=== PATIENT | male | born 1960 | race African-American/Black ===

== ENCOUNTER 2016-09-30 10:40 | Inpatient (IN) | payer OTHER ==
[2016-09-30 11:11] VITALS: BMI 29.5
--- NOTE | 2016-09-30 13:04 | HP ---
CIWA Score - CIWA Score Nausea/Vomitin Muscle Tremors: 3 Anxiety: 2 Agitation: 1-Slight > Activity Paroxysmal Sweats: 3 Orientation: 0-Oriented Tacttile Disturbances: 3-Moderate Itch/Numb/Burn Auditory Disturbances: 0-None Visual Disturbances: 0-None Headache: 3-Moderate CIWA-Ar Total Score: 17 Admission ROS BHS - HPI Chief Complaint: "I need help[.' Pt. is here to Detox from Alcohol. Allergies/Adverse Reactions: Allergies Allergy/AdvReac Type Severity Reaction Status Date / Time trimethoprim Allergy Severe Hives Verified 09/30/16 11:56 [From Bactrim DS] sulfamethoxazole Allergy Mild Hives Verified 09/30/16 11:56 [From Bactrim DS] History of Present Illness: Pt. is a 56 YO male here to Detox from Alcohol. Pt. has had several Detox and Rehab admissions at [facility] in the past. Pt. also uses Cocaine on an intermittent basis. Exam Limitations: No Limitations - Ebola screening Have you traveled outside of the country in the last 21 days: No Have you had contact with anyone from an Ebola affected area: No Have you been sick,other than usual withdrawal symptoms: No Do you have a fever: No - Review of Systems Constitutional: Diaphoresis, Loss of Appetite, Malaise, Night Sweats, Changes in sleep, Unexplained wgt Loss (Lost Approx. 20 lbs. over last 2 months.) EENT: reports: Blurred Vision, Nose Congestion, Sinus Pressure Respiratory: reports: SOB with Exertion, Productive cough (Occasional.) Cardiac: reports: Palpitations GI: reports: Diarrhea, Nausea, Poor Appetite : reports: No Symptoms Reported Musculoskeletal: reports: Back Pain Integumentary: reports: Dryness Neuro: reports: Headache, Tremors Endocrine: reports: No Symptoms Reported Hematology: reports: No Symptoms Reported Psychiatric: reports: Judgement Intact, Mood/Affect Appropiate, Orientated x3, Anxious Other Systems: Reviewed and Negative Patient History - Patient Medical History Hx Anemia: No Hx Asthma: Yes (On meds.) Hx Chronic Obstructive Pulmonary Disease (COPD): Yes Hx Cancer: No (On meds.) Hx Cardiac Disorders: Yes (CHF) Hx Congestive Heart Failure: Yes Hx Hypertension: No Hx Hypercholesterolemia: Yes (ON MED) Hx Pacemaker: No HX Cerebrovascular Accident: No Hx Seizures: No Hx Dementia: No Hx Diabetes: No Hx Gastrointestinal Disorders: No Hx Liver Disease: Yes (Hep C, Treated @ 1999.) Hx Genitourinary Disorders: No Hx Sexually Transmitted Disorders: Yes (Gonorrhea, treated, at approx. age 22.) Hx Renal Disease (ESRD): Yes (Possible, uncertain at this time; has appt. 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 Worker.) Hx Thyroid Disease: No Hx Human Immunodeficiency Virus (HIV): Yes (since 1992; ON MEDS) Hx Hepatitis C: Yes (diagnosed 1992; Treated @ 1999.) Hx Depression: No Hx Suicide Attempt: No (PATIENT DENIES CURRENT SI / HI.) Hx Bipolar Disorder: No Hx Schizophrenia: No - Patient Surgical History Past Surgical History: Yes Hx Neurologic Surgery: No Hx Cataract Extraction: No Hx Cardiac Surgery: No Hx Lung Surgery: No Hx Breast Surgery: No Hx Breast Biopsy: No Hx Abdominal Surgery: No Hx Appendectomy: No Hx Cholecystectomy: Yes (2000 AT [facility]) Hx Genitourinary Surgery: No Hx Section: No Hx Orthopedic Surgery: Yes (Repair of fracted Left Leg, age 11.) Anesthesia Reaction: No (DENIES) - PPD History Previous Implant?: Yes Documented Results: Negative w/proof Implanted On Prior [facility] Admission?: Yes Date: 01/22/16 Results: 0MM PPD to be Administered?: No - Reproductive History Patient is a Female of Child Bearing Age (11 -55 yrs old): No (PATIENT IS MALE.) - Smoking Cessation Smoking history: Current every day smoker Have you smoked in the past 12 months: Yes Aproximately how many cigarettes per day: 3 Cigars Per Day: 0 Hx Chewing Tobacco Use: No Initiated information on smoking cessation: Yes 'Breaking Loose' booklet given: 09/30/16 (GIVEN ON UNIT.) - Substance & Tx. History Hx Alcohol Use: Yes Hx Substance Use: Yes Substance Use Type: Alcohol, Cocaine Hx Substance Use Treatment: Yes (Previous Detox and Rehab admissions at [facility].) - Substances Abused Alcohol Route: Oral Frequency: Daily Amount used: beer 1 of 6 pack, vodka 1 pint Age of first use: 20 Date of Last Use: 09/30/16 Crack Route: Smoking Frequency: 3-6 times per week Amount used: 10 bags Age of first use: 20 Date of Last Use: 09/29/16 Family Disease History - Family Disease History Family Disease History: Heart Disease: Father (alive), Mother (HTN/ alive), Other: Mother Admission Physical Exam [facility] - Vital Signs Vital Signs: Vital Signs - 24 hr 09/30/16 11:09 Temperature 96.7 F L Pulse Rate 91 H Respiratory 18 Rate Blood Pressure 113/83 - Physical General Appearance: Yes: No Apparent Distress, Nourished, Appropriately Dressed , Tremorous HEENTM: Yes: Hearing grossly Normal, Normocephalic, Normal Voice, NHUNG, Pharynx Normal Respiratory: Yes: Chest Non-Tender, Lungs Clear, No Respiratory Distress Neck: Yes: No masses,lesions,Nodules, Supple, Trachea in good position Breast: Yes: Breast Exam Deferred Cardiology: Yes: Regular Rate, S1, S2 Abdominal: Yes: Normal Bowel Sounds, Non Tender, Soft, Protuberent, Surgical Scar (Right Upper Quadrant.) Genitourinary: Yes: Within Normal Limits Back: Yes: Decreased Range of Motion Musculoskeletal: Yes: Gait Steady, Joint Stiffness Extremities: Yes: Tremors Neurological: Yes: Fully Oriented, Alert, Normal Mood/Affect, Normal Response Integumentary: Yes: Normal Color, Dry, Warm Lymphatic: Yes: Within Normal Limits - Diagnostic (1) Alcohol dependence with uncomplicated withdrawal Current Visit: Yes Status: Acute (2) Asthma Current Visit: Yes Status: Chronic (3) CHF Congestive heart failure Current Visit: Yes Status: Chronic (4) HIV (human immunodeficiency virus infection) Current Visit: Yes Status: Chronic Comment: took his antiviril medication today. Unsure of last CD4 count (5) Hepatitis C carrier Current Visit: Yes Status: Chronic (6) Nicotine dependence Current Visit: Yes Status: Chronic Qualifiers: Nicotine product type: cigarettes Substance use status: uncomplicated Qualified Code(s): F17.210 - Nicotine dependence, cigarettes, uncomplicated (7) COPD (chronic obstructive pulmonary disease) Current Visit: Yes Status: Chronic Qualifiers: Chronic bronchitis type: unspecified Qualified Code(s): - (8) Cocaine dependence, uncomplicated Current Visit: Yes Status: Acute Cleared for Admission [facility] - Detox or Rehab [facility] Level of Care: Medically Managed (ADVISED PATIENT TO FOLLOW-UP WITH BUSINESS MACHINE MECHANIC / REHAB MEDICAL PROVIDER AFTER DISCHARGE FROM DETOX FOR GENERAL MEDICAL ASSESSMENT.) Detox Regimen/Protocol: Librium [facility] Breath Alcohol Content Breath Alcohol Content: 0 Urine Drug Screen - Results Drug Screen Negative: No Urine Drug Screen Results: KAMLESH-Cocaine
[2016-09-30] MEDS ORDERED: chlordiazePOXIDE HCL 25 MG CAPSULE PO ONE (13:22)
[2016-09-30] MEDS ORDERED: NICOTINE POLACRILEX 2 MG GUM BC PRN (13:22)
[2016-09-30] MEDS ORDERED: P-EPHED 60MG/TRIPROLIDI 2.5MG TABLET PO PRN (13:22)
[2016-09-30] MEDS ORDERED: MENTHOL/PHENOL 1 EACH UD MM PRN (13:22)
[2016-09-30] MEDS ORDERED: hydrOXYzine PAMOATE 50 MG CAPSULE (FP) PO PRN (13:22)
[2016-09-30] MEDS ORDERED: LOPERAMIDE HCL 2 MG CAPSULE PO PRN (13:22)
[2016-09-30] MEDS ORDERED: guaiFENesin/D-METHORPHAN HB 10 ML UNIT-DOSE CUPS PO PRN (13:22)
[2016-09-30] MEDS ORDERED: chlordiazePOXIDE HCL 25 MG CAPSULE PO PRN (13:22)
[2016-09-30] MEDS ORDERED: IBUPROFEN 400 MG TABLET (FP) PO PRN (13:22)
[2016-09-30] MEDS ORDERED: ACETAMINOPHEN 325 MG TABLET (FP) PO PRN (13:22)
[2016-09-30] MEDS: ASPIRIN 81 MG CHEWABLE TABLETS PO SCH (14:03)
[2016-09-30] MEDS: NICOTINE 14 MG/24 HOURS TOPICAL PATCH TD SCH (14:04)
[2016-09-30] MEDS: ALBUTEROL SO4 6.7 GM HFA INHALER IH PRN (14:24)
[2016-09-30] MEDS ORDERED: CARVEDILOL 12.5 MG TABLET (FP) PO ONE (15:55)
[2016-09-30] MEDS ORDERED: ASPIRIN COATED 81 MG TABLET.EC PO ONE (15:55)
--- NOTE | 2016-09-30 15:58 | PN ---
BHS Progress Note Note: Pt. has a hx. of AF,he sometimes misses carvedilol & aspirin. Vital Signs - 8 hr 09/30/16 09/30/16 11:09 14:03 Temperature 96.7 F L 95.7 F L Pulse Rate 91 H 56 L Respiratory 18 18 Rate Blood Pressure 113/83 122/79 EKG = AF with rapid ventricular response P : Carvbedilol & aspirin stat
[2016-09-30] MEDS: FUROSEMIDE 40 MG TABLET (FP) PO SCH (17:02)
[2016-09-30] MEDS: chlordiazePOXIDE HCL 25 MG CAPSULE PO SCH ×2 (17:02→22:03)
[2016-09-30 17:28] LABS: URINE APPEARANCE TURBID; URINE BILIRUBIN NEGATIVE (NEGATIVE); URINE BLOOD 2+ (NEGATIVE); URINE COLOR DKYELLOW; URINE GLUCOSE (UA) NEGATIVE (NEGATIVE); URINE KETONE NEGATIVE (NEGATIVE); URINE LEUK ESTERASE 3+ (NEGATIVE); URINE NITRITE NEGATIVE (NEGATIVE); URINE PROTEIN 2+ (NEGATIVE); URINE UROBILINOGEN NEGATIVE E.U./dl (0.2-1.0)
[2016-09-30 17:35] LABS: URINE MUCUS RARE; URINE RBC 128 /hpf (0-3); URINE WBC 2749 /hpf (3-5); YEAST RARE
[2016-09-30] MEDS: AMMONIUM LACTATE 12% LOTION 225 GM BOTTLE TP SCH (22:03)
[2016-09-30] MEDS: CARVEDILOL 12.5 MG TABLET (FP) PO SCH (22:03)
[2016-09-30] MEDS: THIAMINE HCL 100 MG TABLET (FP) PO SCH (22:03)
[2016-09-30] MEDS: MOMETASONE FUROATE 220 MCG/IH INHALER IH SCH (22:03)
[2016-09-30] MEDS: diphenhydrAMINE HCL 50 MG CAPSULE PO PRN (22:04)
--- NOTE | 2016-09-30 22:27 | EKG ---
Test Reason : Blood Pressure : / mmHG Vent. Rate : 108 BPM Atrial Rate : 078 BPM P-R Int : 000 ms QRS Dur : 118 ms QT Int : 376 ms P-R-T Axes : 000 019 028 degrees QTc Int : 503 ms ATRIAL FIBRILLATION WITH RAPID VENTRICULAR RESPONSE NON-SPECIFIC INTRA-VENTRICULAR CONDUCTION DELAY ABNORMAL ECG NO PREVIOUS ECGS AVAILABLE Confirmed by DARIUS QURESHI MD ([id number]) on 09/30/2016 10:26:50 PM Referred By: Confirmed By:DARIUS QURESHI MD
[2016-10-01] MEDS: ALBUTEROL SO4 2.5/IPRATROPIUM 0.5 INH SOL 3 ML VIAL.NEB. NEB PRN ×2 (02:02→11:49)
[2016-10-01] MEDS: chlordiazePOXIDE HCL 25 MG CAPSULE PO SCH ×4 (05:35→22:09)
[2016-10-01] MEDS: FUROSEMIDE 40 MG TABLET (FP) PO SCH ×2 (05:36→17:28)
[2016-10-01] MEDS: ALBUTEROL SO4 6.7 GM HFA INHALER IH PRN (05:36)
[2016-10-01 09:48] LABS: MCH 29.3 pg (25.7-33.7); MCHC 32.4 g/dl (32.0-35.9); MEAN CELL VOLUME 90.5 fl (80-96); MEAN PLT VOLUME 10.5 fl (7.5-11.1); PLATELET COUNT 141 K/MM3 (134-434); RDW 15.9 % (11.9-15.9)
[2016-10-01] MEDS: CARVEDILOL 12.5 MG TABLET (FP) PO SCH ×2 (10:13→22:09)
[2016-10-01] MEDS: ASPIRIN 81 MG CHEWABLE TABLETS PO SCH (10:14)
[2016-10-01] MEDS: RITONAVIR 100 MG TABLET PO SCH (10:14)
[2016-10-01] MEDS: TAMSULOSIN HCL 0.4 MG CAP.ER.24H (FP) PO SCH (10:14)
[2016-10-01] MEDS: DARUNAVIR ETHANOLATE 800 MG TAB PO SCH (10:14)
[2016-10-01] MEDS: PRENATAL VITAMINS W/ FOLIC ACID TABLET (FP) PO SCH (10:14)
[2016-10-01] MEDS: AMMONIUM LACTATE 12% LOTION 225 GM BOTTLE TP SCH ×2 (10:14→22:14)
[2016-10-01] MEDS: PATIENT'S OWN MEDICATION (NON-FORMULARY) (Abacavir Sulfate/Lamivudine [Epzicom Tablet] 1 T PO SCH (10:15)
[2016-10-01] MEDS: NICOTINE 14 MG/24 HOURS TOPICAL PATCH TD SCH (10:15)
[2016-10-01 10:28] LABS: ALBUMIN 2.5 g/dl (3.4-5.0); BILIRUBIN,TOTAL 0.6 mg/dL (0.2-1.0); CALCIUM 8.4 mg/dL (8.5-10.1); CREATININE 1.8 mg/dL (0.7-1.3); TOT PROT 8.5 g/dl (6.4-8.2)
--- NOTE | 2016-10-01 10:38 | PN ---
[facility] CIWA - CIWA Score Nausea/Vomitin-No Nausea/No Vomiting Muscle Tremors: 4-Moderate,w/Arms Extend Anxiety: 4-Mod. Anxious/Guarded Agitation: 3 Paroxysmal Sweats: 3 Orientation: 0-Oriented Tacttile Disturbances: 1-Very Mild Itch/Numbness Auditory Disturbances: 0-None Visual Disturbances: 0-None Headache: 0-None Present CIWA-Ar Total Score: 15 BHS Progress Note (SOAP) Subjective: Anxiety,tremors,sweating,interrupted sleep Objective: 10/01/16 10:36 Vital Signs - 8 hr 10/01/16 10/01/16 10/01/16 03:35 06:18 10:29 Temperature 98.2 F 96 F L Pulse Rate 92 H 98 H Respiratory 18 20 20 Rate Blood Pressure 108/71 114/77 Laboratory Last Values WBC 5.0 K/mm3 (4.0-10.0) 10/01/16 07:00 RBC 3.60 M/mm3 (4.00-5.60) L 10/01/16 07:00 Hgb 10.6 GM/dL (11.7-16.9) L D 10/01/16 07:00 Hct 32.6 % (35.4-49) L 10/01/16 07:00 MCV 90.5 fl (80-96) 10/01/16 07:00 MCHC 32.4 g/dl (32.0-35.9) 10/01/16 07:00 RDW 15.9 % (11.9-15.9) 10/01/16 07:00 Plt Count 141 K/MM3 (134-434) 10/01/16 07:00 MPV 10.5 fl (7.5-11.1) D 10/01/16 07:00 Sodium 141 mmol/L (136-145) 10/01/16 07:00 Potassium 4.1 mmol/L (3.5-5.1) 10/01/16 07:00 Chloride 110 mmol/L (98-107) H 10/01/16 07:00 Carbon Dioxide 23 mmol/L (21-32) 10/01/16 07:00 Anion Gap 8 (8-16) 10/01/16 07:00 BUN 26 mg/dL (7-18) H 10/01/16 07:00 Creatinine 1.8 mg/dL (0.7-1.3) H 10/01/16 07:00 Creat Clearance w eGFR 39.52 (>60) 10/01/16 07:00 Random Glucose 87 mg/dL (74-106) 10/01/16 07:00 Calcium 8.4 mg/dL (8.5-10.1) L 10/01/16 07:00 Total Bilirubin 0.6 mg/dL (0.2-1.0) 10/01/16 07:00 AST 44 U/L (15-37) H 10/01/16 07:00 ALT 31 U/L (12-78) D 10/01/16 07:00 Alkaline Phosphatase 100 U/L (45-117) 10/01/16 07:00 Total Protein 8.5 g/dl (6.4-8.2) H 10/01/16 07:00 Albumin 2.5 g/dl (3.4-5.0) L 10/01/16 07:00 Urine Color Dkyellow 09/30/16 17:00 Urine Appearance Turbid 09/30/16 17:00 Urine pH 5.0 (5.0-8.0) 09/30/16 17:00 Ur Specific [place] 1.018 (1.001-1.035) 09/30/16 17:00 Urine Protein 2+ (NEGATIVE) H 09/30/16 17:00 Urine Glucose (UA) Negative (NEGATIVE) 09/30/16 17:00 Urine Ketones Negative (NEGATIVE) 09/30/16 17:00 Urine Blood 2+ (NEGATIVE) H 09/30/16 17:00 Urine Nitrite Negative (NEGATIVE) 09/30/16 17:00 Urine Bilirubin Negative (NEGATIVE) 09/30/16 17:00 Urine Urobilinogen Negative E.U./dl (0.2-1.0) 09/30/16 17:00 Ur Leukocyte Esterase 3+ (NEGATIVE) H D 09/30/16 17:00 Urine RBC 128 /hpf (0-3) 09/30/16 17:00 Urine WBC 2749 /hpf (3-5) 09/30/16 17:00 Ur Epithelial Cells Rare /hpf (FEW) 09/30/16 17:00 Urine Mucus Rare 09/30/16 17:00 Urine Yeast Rare 09/30/16 17:00 labs noted,repeat u/a Assessment: 10/01/16 10:37 withdrawal sx. Microscopic Hematuria Plan: Continue detox
--- NOTE | 2016-10-01 12:40 | EKG ---
Test Reason : Blood Pressure : / mmHG Vent. Rate : 101 BPM Atrial Rate : 068 BPM P-R Int : 000 ms QRS Dur : 124 ms QT Int : 392 ms P-R-T Axes : 000 010 026 degrees QTc Int : 508 ms ATRIAL FIBRILLATION WITH RAPID VENTRICULAR RESPONSE CANNOT RULE OUT INFERIOR INFARCT , AGE UNDETERMINED ABNORMAL ECG WHEN COMPARED WITH ECG OF 30-SEP-2016 13:17, NO SIGNIFICANT CHANGE WAS FOUND Confirmed by MARTHA LARRY MD ([id number]) on 10/01/2016 12:40:36 PM Referred By: Confirmed By:MARTHA LARRY MD
[2016-10-01 14:11] LABS: INR 1.16 (0.82-1.09); PROTHROMBIN TIME (PATIENT) 12.8 SEC (9.98-11.88)
[2016-10-01 17:17] LABS: URINE APPEARANCE TURBID; URINE BILIRUBIN NEGATIVE (NEGATIVE); URINE COLOR YELLOW; URINE GLUCOSE (UA) NEGATIVE (NEGATIVE); URINE KETONE NEGATIVE (NEGATIVE); URINE NITRITE NEGATIVE (NEGATIVE); URINE UROBILINOGEN NEGATIVE E.U./dl (0.2-1.0)
[2016-10-01 17:41] LABS: URINE BLOOD 1+ (NEGATIVE); URINE LEUK ESTERASE 3+ (NEGATIVE); URINE PROTEIN 2+ (NEGATIVE)
[2016-10-01 17:49] LABS: URINE RBC 22 /hpf (0-3); URINE WBC 5164 /hpf (3-5)
[2016-10-01] MEDS: MOMETASONE FUROATE 220 MCG/IH INHALER IH SCH (22:11)
[2016-10-01] MEDS: diphenhydrAMINE HCL 50 MG CAPSULE PO PRN (22:12)
[2016-10-01] MEDS: THIAMINE HCL 100 MG TABLET (FP) PO SCH (22:14)
[2016-10-02] MEDS: FUROSEMIDE 40 MG TABLET (FP) PO SCH ×2 (05:46→22:02)
[2016-10-02] MEDS: chlordiazePOXIDE HCL 25 MG CAPSULE PO SCH ×2 (05:46→10:15)
[2016-10-02] MEDS: ALBUTEROL SO4 6.7 GM HFA INHALER IH PRN (05:54)
--- NOTE | 2016-10-02 09:58 | PN ---
[facility] CIWA - CIWA Score Nausea/Vomitin-No Nausea/No Vomiting Muscle Tremors: 4-Moderate,w/Arms Extend Anxiety: 4-Mod. Anxious/Guarded Agitation: 4-Moderately Restless Paroxysmal Sweats: 1-Minimal Palms Moist Orientation: 0-Oriented Tacttile Disturbances: 3-Moderate Itch/Numb/Burn Auditory Disturbances: 0-None Visual Disturbances: 0-None Headache: 0-None Present CIWA-Ar Total Score: 16 BHS Progress Note (SOAP) Subjective: ANXIETY,SWEATS,FATIGUE. Objective: 10/02/16 09:56 Vital Signs Temperature 96 F L 10/02/16 06:07 Pulse Rate 113 H 10/02/16 06:07 Respiratory Rate 20 10/02/16 06:07 Blood Pressure 110/72 10/02/16 06:07 O2 Sat by Pulse Oximetry (%) Laboratory Tests 09/30/16 10/01/16 10/01/16 17:00 07:00 07:00 WBC 5.0 RBC 3.60 L Hgb 10.6 L D Hct 32.6 L MCV 90.5 MCHC 32.4 RDW 15.9 Plt Count 141 MPV 10.5 D INR Sodium 141 Potassium 4.1 Chloride 110 H Carbon Dioxide 23 Anion Gap 8 BUN 26 H Creatinine 1.8 H Creat Clearance w eGFR 39.52 Random Glucose 87 Calcium 8.4 L Total Bilirubin 0.6 AST 44 H ALT 31 D Alkaline Phosphatase 100 Total Protein 8.5 H Albumin 2.5 L Urine Color Dkyellow Urine Appearance Turbid Urine pH 5.0 Ur Specific [place] 1.018 Urine Protein 2+ H Urine Glucose (UA) Negative Urine Ketones Negative Urine Blood 2+ H Urine Nitrite Negative Urine Bilirubin Negative Urine Urobilinogen Negative Ur Leukocyte Esterase 3+ H D Urine RBC 128 Urine WBC 2749 Ur Epithelial Cells Rare Urine Mucus Rare Urine Yeast Rare RPR Titer T.pallidum Ab ([facility]) 10/01/16 10/01/16 10/01/16 07:00 11:35 16:30 WBC RBC Hgb Hct MCV MCHC RDW Plt Count MPV INR 1.16 H Sodium Potassium Chloride Carbon Dioxide Anion Gap BUN Creatinine Creat Clearance w eGFR Random Glucose Calcium Total Bilirubin AST ALT Alkaline Phosphatase Total Protein Albumin Urine Color Yellow Urine Appearance Turbid Urine pH 6.0 Ur Specific [place] 1.014 Urine Protein 2+ H Urine Glucose (UA) Negative Urine Ketones Negative Urine Blood 1+ H Urine Nitrite Negative Urine Bilirubin Negative Urine Urobilinogen Negative Ur Leukocyte Esterase 3+ H Urine RBC 22 Urine WBC 5164 Ur Epithelial Cells Urine Mucus Urine Yeast RPR Titer Reactive 1:1 H T.pallidum Ab ([facility]) Non reactive PER LAB RESULTS STOOL OCULT BLOOD; UA/UC ORDERED. Assessment: 10/02/16 09:57 WITHDRAWAL SX R/O UTI Plan: CONTINUE DETOX LEVAQUIN DIRECTED
[2016-10-02] MEDS: CARVEDILOL 12.5 MG TABLET (FP) PO SCH ×2 (10:15→22:03)
[2016-10-02] MEDS: TAMSULOSIN HCL 0.4 MG CAP.ER.24H (FP) PO SCH (10:15)
[2016-10-02] MEDS: DARUNAVIR ETHANOLATE 800 MG TAB PO SCH (10:15)
[2016-10-02] MEDS: PATIENT'S OWN MEDICATION (NON-FORMULARY) (Abacavir Sulfate/Lamivudine [Epzicom Tablet] 1 T PO SCH (10:15)
[2016-10-02] MEDS: RITONAVIR 100 MG TABLET PO SCH (10:15)
[2016-10-02] MEDS: AMMONIUM LACTATE 12% LOTION 225 GM BOTTLE TP SCH ×2 (10:15→22:03)
[2016-10-02] MEDS: PRENATAL VITAMINS W/ FOLIC ACID TABLET (FP) PO SCH (10:16)
[2016-10-02] MEDS: NICOTINE 14 MG/24 HOURS TOPICAL PATCH TD SCH (10:16)
[2016-10-02] MEDS: ASPIRIN COATED 81 MG TABLET.EC PO SCH (12:30)
[2016-10-02] MEDS: chlordiazePOXIDE 5 MG CAPSULE PO SCH ×2 (17:22→22:03)
[2016-10-02] MEDS: THIAMINE HCL 100 MG TABLET (FP) PO SCH (22:03)
[2016-10-02] MEDS: MOMETASONE FUROATE 220 MCG/IH INHALER IH SCH (22:04)
[2016-10-02] MEDS: diphenhydrAMINE HCL 50 MG CAPSULE PO PRN (22:04)
[2016-10-03] MEDS: chlordiazePOXIDE 5 MG CAPSULE PO SCH ×2 (06:11→10:06)
[2016-10-03] MEDS: FUROSEMIDE 40 MG TABLET (FP) PO SCH ×2 (06:11→17:23)
[2016-10-03] MEDS: PATIENT'S OWN MEDICATION (NON-FORMULARY) (Abacavir Sulfate/Lamivudine [Epzicom Tablet] 1 T PO SCH (10:05)
[2016-10-03] MEDS: DARUNAVIR ETHANOLATE 800 MG TAB PO SCH (10:05)
[2016-10-03] MEDS: AMMONIUM LACTATE 12% LOTION 225 GM BOTTLE TP SCH ×2 (10:06→23:13)
[2016-10-03] MEDS: CARVEDILOL 12.5 MG TABLET (FP) PO SCH ×2 (10:06→22:50)
[2016-10-03] MEDS: NICOTINE 14 MG/24 HOURS TOPICAL PATCH TD SCH (10:06)
[2016-10-03] MEDS: PRENATAL VITAMINS W/ FOLIC ACID TABLET (FP) PO SCH (10:06)
[2016-10-03] MEDS: ASPIRIN COATED 81 MG TABLET.EC PO SCH (10:06)
[2016-10-03] MEDS: TAMSULOSIN HCL 0.4 MG CAP.ER.24H (FP) PO SCH (10:06)
[2016-10-03] MEDS: RITONAVIR 100 MG TABLET PO SCH (10:06)
--- NOTE | 2016-10-03 11:06 | PN ---
BHS Progress Note (SOAP) Subjective: DECREASE ANXIETY,TREMORS, PT STATES SEES A PMD FEDE CACERES MD AT [facility]. C/O CLOUDY URINE LATELY. Objective: 10/03/16 11:10 Vital Signs Temperature 95.9 F L 10/03/16 09:13 Pulse Rate 94 H 10/03/16 09:13 Respiratory Rate 20 10/03/16 09:13 Blood Pressure 119/83 10/03/16 09:13 O2 Sat by Pulse Oximetry (%) Microbiology 10/01/16 16:30 Urine - Urine Clean Catch Urine Culture - Final NO GROWTH OBTAINED Laboratory Tests 09/30/16 10/01/16 10/01/16 17:00 07:00 07:00 WBC 5.0 RBC 3.60 L Hgb 10.6 L D Hct 32.6 L MCV 90.5 MCHC 32.4 RDW 15.9 Plt Count 141 MPV 10.5 D INR Sodium 141 Potassium 4.1 Chloride 110 H Carbon Dioxide 23 Anion Gap 8 BUN 26 H Creatinine 1.8 H Creat Clearance w eGFR 39.52 Random Glucose 87 Calcium 8.4 L Total Bilirubin 0.6 AST 44 H ALT 31 D Alkaline Phosphatase 100 Total Protein 8.5 H Albumin 2.5 L Urine Color Dkyellow Urine Appearance Turbid Urine pH 5.0 Ur Specific [place] 1.018 Urine Protein 2+ H Urine Glucose (UA) Negative Urine Ketones Negative Urine Blood 2+ H Urine Nitrite Negative Urine Bilirubin Negative Urine Urobilinogen Negative Ur Leukocyte Esterase 3+ H D Urine RBC 128 Urine WBC 2749 Ur Epithelial Cells Rare Urine Mucus Rare Urine Yeast Rare RPR Titer T.pallidum Ab ([facility]) 10/01/16 10/01/16 10/01/16 07:00 11:35 16:30 WBC RBC Hgb Hct MCV MCHC RDW Plt Count MPV INR 1.16 H Sodium Potassium Chloride Carbon Dioxide Anion Gap BUN Creatinine Creat Clearance w eGFR Random Glucose Calcium Total Bilirubin AST ALT Alkaline Phosphatase Total Protein Albumin Urine Color Yellow Urine Appearance Turbid Urine pH 6.0 Ur Specific [place] 1.014 Urine Protein 2+ H Urine Glucose (UA) Negative Urine Ketones Negative Urine Blood 1+ H Urine Nitrite Negative Urine Bilirubin Negative Urine Urobilinogen Negative Ur Leukocyte Esterase 3+ H Urine RBC 22 Urine WBC 5164 Ur Epithelial Cells Urine Mucus Urine Yeast RPR Titer Reactive 1:1 H T.pallidum Ab ([facility]) Non reactive Assessment: 10/03/16 11:11 WITHDRAWAL SX Plan: CONTINUE DETOX
[2016-10-03] MEDS: LEVOFLOXACIN 500 MG TABLET (FP) PO SCH (11:08)
[2016-10-03] MEDS: chlordiazePOXIDE HCL 10 MG CAPSULE PO SCH ×2 (17:23→22:49)
[2016-10-03] MEDS: MOMETASONE FUROATE 220 MCG/IH INHALER IH SCH (22:49)
[2016-10-03] MEDS: THIAMINE HCL 100 MG TABLET (FP) PO SCH (22:49)
[2016-10-03] MEDS: diphenhydrAMINE HCL 50 MG CAPSULE PO PRN (22:50)
[2016-10-04] MEDS: FUROSEMIDE 40 MG TABLET (FP) PO SCH (06:05)
[2016-10-04] MEDS: chlordiazePOXIDE HCL 10 MG CAPSULE PO SCH ×2 (06:05→11:56)
[2016-10-04] MEDS: LEVOFLOXACIN 500 MG TABLET (FP) PO SCH (06:05)
[2016-10-04 09:30] VITALS: BP 105/76; PULSE 11; TEMP 95.5
--- NOTE | 2016-10-04 09:40 | DS ---
[facility] Detox Discharge Summary Admission Date: 09/30/16 Discharge Date: 10/04/16 - History Present History: Alcohol Dependence, Cocaine Dependence Pertinent Past History: Asthma CHF HIV Hep C BPH - Physical Exam Results Vital Signs: Vital Signs Temperature 95.5 F L 10/04/16 09:28 Pulse Rate 11 L 10/04/16 09:28 Respiratory Rate 20 10/04/16 09:28 Blood Pressure 105/76 10/04/16 09:28 O2 Sat by Pulse Oximetry (%) Pertinent Admission Physical Exam Findings: Withdrawal sx. Laboratory Tests 09/30/16 10/01/16 10/01/16 17:00 07:00 07:00 WBC 5.0 RBC 3.60 L Hgb 10.6 L D Hct 32.6 L MCV 90.5 MCHC 32.4 RDW 15.9 Plt Count 141 MPV 10.5 D INR Sodium 141 Potassium 4.1 Chloride 110 H Carbon Dioxide 23 Anion Gap 8 BUN 26 H Creatinine 1.8 H Creat Clearance w eGFR 39.52 Random Glucose 87 Calcium 8.4 L Total Bilirubin 0.6 AST 44 H ALT 31 D Alkaline Phosphatase 100 Total Protein 8.5 H Albumin 2.5 L Urine Color Dkyellow Urine Appearance Turbid Urine pH 5.0 Ur Specific [place] 1.018 Urine Protein 2+ H Urine Glucose (UA) Negative Urine Ketones Negative Urine Blood 2+ H Urine Nitrite Negative Urine Bilirubin Negative Urine Urobilinogen Negative Ur Leukocyte Esterase 3+ H D Urine RBC 128 Urine WBC 2749 Ur Epithelial Cells Rare Urine Mucus Rare Urine Yeast Rare Stool Occult Blood RPR Titer T.pallidum Ab ([facility]) 10/01/16 10/01/16 10/01/16 07:00 11:35 16:30 WBC RBC Hgb Hct MCV MCHC RDW Plt Count MPV INR 1.16 H Sodium Potassium Chloride Carbon Dioxide Anion Gap BUN Creatinine Creat Clearance w eGFR Random Glucose Calcium Total Bilirubin AST ALT Alkaline Phosphatase Total Protein Albumin Urine Color Yellow Urine Appearance Turbid Urine pH 6.0 Ur Specific [place] 1.014 Urine Protein 2+ H Urine Glucose (UA) Negative Urine Ketones Negative Urine Blood 1+ H Urine Nitrite Negative Urine Bilirubin Negative Urine Urobilinogen Negative Ur Leukocyte Esterase 3+ H Urine RBC 22 Urine WBC 5164 Ur Epithelial Cells Urine Mucus Urine Yeast Stool Occult Blood RPR Titer Reactive 1:1 H T.pallidum Ab ([facility]) Non reactive 10/03/16 09:35 WBC RBC Hgb Hct MCV MCHC RDW Plt Count MPV INR Sodium Potassium Chloride Carbon Dioxide Anion Gap BUN Creatinine Creat Clearance w eGFR Random Glucose Calcium Total Bilirubin AST ALT Alkaline Phosphatase Total Protein Albumin Urine Color Urine Appearance Urine pH Ur Specific [place] Urine Protein Urine Glucose (UA) Urine Ketones Urine Blood Urine Nitrite Urine Bilirubin Urine Urobilinogen Ur Leukocyte Esterase Urine RBC Urine WBC Ur Epithelial Cells Urine Mucus Urine Yeast Stool Occult Blood Negative RPR Titer T.pallidum Ab ([facility]) Microbiology 10/01/16 16:30 Urine Culture - Final Urine - Urine Clean Catch NO GROWTH OBTAINED labs noted,F/U labs will be done in rehab then at infectious disease clinic. - Treatment Hospital Course: Detox Protocol Followed, Detoxed Safely, Responded well, Discharged Condition Good, Rehab Referral Accepted Patient has Accepted a Rehab Referral to: [facility] - Medication Discharge Medications: Ambulatory Orders Aspirin 81 mg PO DAILY #30 tab.chew 11/13/13 Albuterol Sulfate Inhaler - [Ventolin HFA Inhaler -] 2 inh PO Q4H PRN #1 inh 12/19 Ritonavir [Norvir] 100 mg PO DAILY #30 tablet 02/10/14 Abacavir Sulfate/Lamivudine [Epzicom Tablet] 1 tablet PO DAILY 01/20/16 Darunavir Ethanolate [Prezista] 800 mg PO DAILY 01/20/16 Furosemide [Lasix -] 40 mg PO BID 01/20/16 Mometasone Furoate [Asmanex 220Mcg -] 2 inh IH HS 06/15/16 Carvedilol [Coreg -] 12.5 mg PO BID 09/30/16 Tamsulosin HCl [Flomax -] 0.4 mg PO DAILY 09/30/16 - Diagnosis (1) Alcohol dependence with uncomplicated withdrawal Current Visit: Yes Status: Acute (2) Cocaine dependence, uncomplicated Current Visit: Yes Status: Acute (3) Asthma Current Visit: Yes Status: Chronic (4) CHF Congestive heart failure Current Visit: Yes Status: Chronic (5) COPD (chronic obstructive pulmonary disease) Current Visit: Yes Status: Chronic Qualifiers: Chronic bronchitis type: unspecified (6) HIV (human immunodeficiency virus infection) Current Visit: Yes Status: Chronic (7) Hepatitis C carrier Current Visit: Yes Status: Chronic (8) Nicotine dependence Current Visit: Yes Status: Chronic Qualifiers: Nicotine product type: cigarettes Substance use status: uncomplicated Qualified Code(s): F17.210 - Nicotine dependence, cigarettes, uncomplicated - AMA Did Patient Leave Against Medical Advice: No
[2016-10-04] MEDS: RITONAVIR 100 MG TABLET PO SCH (10:39)
[2016-10-04] MEDS: DARUNAVIR ETHANOLATE 800 MG TAB PO SCH (10:39)
[2016-10-04] MEDS: ASPIRIN COATED 81 MG TABLET.EC PO SCH (10:39)
[2016-10-04] MEDS: PRENATAL VITAMINS W/ FOLIC ACID TABLET (FP) PO SCH (10:39)
[2016-10-04] MEDS: TAMSULOSIN HCL 0.4 MG CAP.ER.24H (FP) PO SCH (10:39)
[2016-10-04] MEDS: CARVEDILOL 12.5 MG TABLET (FP) PO SCH (10:39)
[2016-10-04] MEDS: PATIENT'S OWN MEDICATION (NON-FORMULARY) (Abacavir Sulfate/Lamivudine [Epzicom Tablet] 1 T PO SCH (10:40)
[2016-10-04] MEDS: AMMONIUM LACTATE 12% LOTION 225 GM BOTTLE TP SCH (10:41)
[2016-10-04] MEDS: NICOTINE 14 MG/24 HOURS TOPICAL PATCH TD SCH (10:42)
== END 2016-10-04 12:44 | disposition other institution (70) | DRG 774 ==
LOC: YASAS 10:40 → Y3N 12:37
PROVIDERS: ADMIT Internal Medicine; ATTEND Internal Medicine
PROC: HZ2ZZZZ Detoxification Services for Substance Abuse Treatment (ICD-10-PCS; principal; 2016-09-30)
DX: F10.230 Alcohol dependence with withdrawal, uncomplicated (principal); F14.20 Cocaine dependence, uncomplicated; F17.210 Nicotine dependence, cigarettes, uncomplicated; J45.909 Unspecified asthma, uncomplicated; J44.9 Chronic obstructive pulmonary disease, unspecified; Z21 Asymptomatic human immunodeficiency virus [HIV] infection status; B18.2 Chronic viral hepatitis C; R31.29 Other microscopic hematuria; I48.91 Unspecified atrial fibrillation; E78.00 Pure hypercholesterolemia, unspecified; Z87.438 Personal history of other diseases of male genital organs
CPT/HCPCS: 36415; 80053; 81003; 81015; 82272; 85027; 85610; 86593; 86780; 87086; 93005; 93010; 94640

== ENCOUNTER 2016-10-04 13:12 | Inpatient (IN) | payer OTHER ==
[2016-10-04] MEDS ORDERED: guaiFENesin/D-METHORPHAN HB 10 ML UNIT-DOSE CUPS PO PRN (14:59)
[2016-10-04] MEDS ORDERED: MAGNESIUM CITRATE 300 ML BOTTLE PO PRN (14:59)
[2016-10-04] MEDS ORDERED: IBUPROFEN 400 MG TABLET (FP) PO PRN (14:59)
[2016-10-04] MEDS ORDERED: P-EPHED 60MG/TRIPROLIDI 2.5MG TABLET PO PRN (14:59)
[2016-10-04] MEDS ORDERED: MENTHOL/PHENOL 1 EACH UD MM PRN (14:59)
[2016-10-04] MEDS ORDERED: LOPERAMIDE HCL 2 MG CAPSULE PO PRN (14:59)
[2016-10-04] MEDS ORDERED: NICOTINE POLACRILEX 2 MG GUM BUC PRN (14:59)
[2016-10-04] MEDS ORDERED: MAG HYDROX/AL HYDROX/SIMETH 30 ML UNIT-DOSE CUP PO PRN (14:59)
[2016-10-04] MEDS ORDERED: ACETAMINOPHEN 325 MG TABLET (FP) PO PRN (14:59)
[2016-10-04] MEDS ORDERED: MAGNESIUM HYDROX 2400MG/30ML ORAL SUSPENSION 30 ML CUP PO PRN (14:59)
--- NOTE | 2016-10-04 16:22 | HP ---
[facility] Rehab Assess/Revision - Admission History Admitted to Rehab from: [facility] Date of Admission to Rehab: 10/04/16 - Vital signs Vital Signs: Vital Signs Period Temp Pulse Resp BP Sys/Jade Pulse Ox Last 24 Hr 98.1 F 120 20 116/84 - Findings Detox History & Physical reviewed: Yes Concur with findings: Yes Comments/Additional Findings: transferred from detox to rehab admission as per protocol
[2016-10-04] MEDS: THIAMINE HCL 100 MG TABLET (FP) PO SCH (21:21)
[2016-10-04] MEDS: CARVEDILOL 12.5 MG TABLET (FP) PO SCH (21:22)
[2016-10-04] MEDS: FUROSEMIDE 20 MG TABLET (FP) PO SCH (21:22)
[2016-10-04] MEDS: MOMETASONE FUROATE 220 MCG/IH INHALER IH SCH (21:23)
[2016-10-04] MEDS: diphenhydrAMINE HCL 50 MG CAPSULE PO PRN (21:24)
[2016-10-05] MEDS: LEVOFLOXACIN 500 MG TABLET (FP) PO SCH (06:18)
[2016-10-05] MEDS: DARUNAVIR ETHANOLATE 800 MG TAB PO SCH (09:55)
[2016-10-05] MEDS: PRENATAL VITAMINS W/ FOLIC ACID TABLET (FP) PO SCH (09:55)
[2016-10-05] MEDS: FUROSEMIDE 20 MG TABLET (FP) PO SCH ×2 (09:55→21:46)
[2016-10-05] MEDS: CARVEDILOL 12.5 MG TABLET (FP) PO SCH ×2 (09:55→21:46)
[2016-10-05] MEDS: ASPIRIN 81 MG CHEWABLE TABLETS PO SCH (09:55)
[2016-10-05] MEDS: RITONAVIR 100 MG TABLET PO SCH (09:56)
[2016-10-05] MEDS: PATIENT'S OWN MEDICATION (NON-FORMULARY) (Abacavir Sulfate/Lamivudine [Epzicom Tablet] 1 T PO SCH (09:56)
[2016-10-05] MEDS ORDERED: TAMSULOSIN HCL 0.4 MG CAP.ER.24H (FP) PO SCH (10:00)
--- NOTE | 2016-10-05 11:29 | HP ---
Psychiatrist Admission - Data Date of interview: 10/05/16 Admission source: 3N Identifying data: This is one of the severall 5N inpatient rehabilitation admissions for this 56 year old black male residing with family, supported by [facility]. Medical History: HIV positive 1993, CHF, COPD, BPH, Hepatitis C, HTN and smokes cigarettes. 3-4 a day. Psychiatric History: Denies history of psychiatric treatment. Physical/Sexual Abuse/Trauma History: Denies history of sexual,physical and verbal abuse. Vital Signs: Vital Signs - 24 hr 10/04/16 10/04/16 10/04/16 15:40 21:50 22:07 Temperature 98.1 F 98.0 F Pulse Rate 120 H 108 H 95 H Respiratory 20 18 Rate Blood Pressure 116/84 109/84 99/63 10/05/16 10/05/16 00:30 06:55 Temperature 98.4 F Pulse Rate 117 H Respiratory 18 18 Rate Blood Pressure 103/79 Allergies/Adverse Reactions: Allergies Allergy/AdvReac Type Severity Reaction Status Date / Time trimethoprim Allergy Severe Hives Verified 10/04/16 15:01 [From Bactrim DS] sulfamethoxazole Allergy Mild Hives Verified 10/04/16 15:01 [From Bactrim DS] Date of last physical exam: 09/30/16 Concur with the findings of this exam: Yes - Substance Abuse/Tx History Hx Alcohol Use: Yes (daily use of beer) Hx Substance Use: Yes Substance Use Type: Cocaine ($100 daily) Hx Substance Use Treatment: Yes (several detx/rehabs) - Admission Criteria Previous failed treatment: Yes Poor recovery environment: Yes Comorbidities: No Lacks judgement: Yes Mental Status Exam - Mental Status Exam Alert and Oriented to: Time, Place, Person Cognitive Function: Good Patient Appearance: Well Groomed Mood: Hopeful Affect: Appropriate, Mood Congruent Patient Behavior: Appropriate, Cooperative Speech Pattern: Clear, Appropriate Voice Loudness: Normal Thought Process: Intact, Goal Oriented Thought Disorder: Not Present Hallucinations: None, Denies Suicidal Ideation: None, Denies Homicidal Ideation: None, Denies Insight/Judgement: Good Sleep: Well Appetite: Poor (reelated it to his dri=ug use), Weight loss Muscle strength/Tone: Normal Gait/Station: Normal Psychiatric Findings - Problem List ([place] 1, 2,3) (1) Nicotine dependence Current Visit: No Status: Chronic Qualifiers: Nicotine product type: cigarettes Substance use status: uncomplicated Qualified Code(s): F17.210 - Nicotine dependence, cigarettes, uncomplicated (2) Alcohol dependence Current Visit: Yes Status: Acute (3) Cocaine dependence Current Visit: Yes Status: Acute - Initial Treatment Plan Initial Treatment Plan: will monitor progress as needed.
[2016-10-05] MEDS: MOMETASONE FUROATE 220 MCG/IH INHALER IH SCH (21:46)
[2016-10-05] MEDS: THIAMINE HCL 100 MG TABLET (FP) PO SCH (21:46)
[2016-10-05] MEDS: TAMSULOSIN HCL 0.4 MG CAP.ER.24H (FP) PO SCH (21:48)
[2016-10-05] MEDS: diphenhydrAMINE HCL 50 MG CAPSULE PO PRN (21:48)
[2016-10-06] MEDS: LEVOFLOXACIN 500 MG TABLET (FP) PO SCH (06:33)
[2016-10-06] MEDS: CARVEDILOL 12.5 MG TABLET (FP) PO SCH ×2 (09:43→21:29)
[2016-10-06] MEDS: PRENATAL VITAMINS W/ FOLIC ACID TABLET (FP) PO SCH (09:43)
[2016-10-06] MEDS: ASPIRIN 81 MG CHEWABLE TABLETS PO SCH (09:43)
[2016-10-06] MEDS: FUROSEMIDE 20 MG TABLET (FP) PO SCH ×2 (09:43→21:29)
[2016-10-06] MEDS: DARUNAVIR ETHANOLATE 800 MG TAB PO SCH (09:43)
[2016-10-06] MEDS: PATIENT'S OWN MEDICATION (NON-FORMULARY) (Abacavir Sulfate/Lamivudine [Epzicom Tablet] 1 T PO SCH (09:44)
[2016-10-06] MEDS: RITONAVIR 100 MG TABLET PO SCH (09:45)
[2016-10-06] MEDS: THIAMINE HCL 100 MG TABLET (FP) PO SCH (21:29)
[2016-10-06] MEDS: TAMSULOSIN HCL 0.4 MG CAP.ER.24H (FP) PO SCH (21:29)
[2016-10-06] MEDS: MOMETASONE FUROATE 220 MCG/IH INHALER IH SCH (21:29)
[2016-10-07] MEDS: PRENATAL VITAMINS W/ FOLIC ACID TABLET (FP) PO SCH (09:54)
[2016-10-07] MEDS: DARUNAVIR ETHANOLATE 800 MG TAB PO SCH (09:55)
[2016-10-07] MEDS: PATIENT'S OWN MEDICATION (NON-FORMULARY) (Abacavir Sulfate/Lamivudine [Epzicom Tablet] 1 T PO SCH (09:55)
[2016-10-07] MEDS: ASPIRIN 81 MG CHEWABLE TABLETS PO SCH (09:55)
[2016-10-07] MEDS: CARVEDILOL 12.5 MG TABLET (FP) PO SCH ×2 (09:55→21:17)
[2016-10-07] MEDS: FUROSEMIDE 20 MG TABLET (FP) PO SCH ×2 (09:56→21:18)
[2016-10-07] MEDS: RITONAVIR 100 MG TABLET PO SCH (09:56)
[2016-10-07] MEDS: TAMSULOSIN HCL 0.4 MG CAP.ER.24H (FP) PO SCH (21:17)
[2016-10-07] MEDS: MOMETASONE FUROATE 220 MCG/IH INHALER IH SCH (21:18)
[2016-10-07] MEDS: THIAMINE HCL 100 MG TABLET (FP) PO SCH (21:18)
[2016-10-07] MEDS: diphenhydrAMINE HCL 50 MG CAPSULE PO PRN (21:19)
[2016-10-08] MEDS: ALBUTEROL SO4 6.7 GM HFA INHALER IH PRN (09:47)
[2016-10-08] MEDS: ASPIRIN 81 MG CHEWABLE TABLETS PO SCH (09:48)
[2016-10-08] MEDS: DARUNAVIR ETHANOLATE 800 MG TAB PO SCH (09:48)
[2016-10-08] MEDS: PRENATAL VITAMINS W/ FOLIC ACID TABLET (FP) PO SCH (09:48)
[2016-10-08] MEDS: PATIENT'S OWN MEDICATION (NON-FORMULARY) (Abacavir Sulfate/Lamivudine [Epzicom Tablet] 1 T PO SCH (09:48)
[2016-10-08] MEDS: CARVEDILOL 12.5 MG TABLET (FP) PO SCH ×2 (09:48→21:20)
[2016-10-08] MEDS: RITONAVIR 100 MG TABLET PO SCH (09:48)
[2016-10-08] MEDS ORDERED: FUROSEMIDE 40 MG TABLET (FP) PO SCH (09:49)
[2016-10-08] MEDS ORDERED: COLLOIDAL OATMEAL 1 BAR EACH TP PRN (13:42)
--- NOTE | 2016-10-08 13:45 | PN ---
BHS Progress Note Note: pulse ox on room air 96%.
[2016-10-08] MEDS: THIAMINE HCL 100 MG TABLET (FP) PO SCH (21:20)
[2016-10-08] MEDS: FUROSEMIDE 40 MG TABLET (FP) PO SCH ×2 (21:20→23:16)
[2016-10-08] MEDS: TAMSULOSIN HCL 0.4 MG CAP.ER.24H (FP) PO SCH (21:20)
[2016-10-08] MEDS: diphenhydrAMINE HCL 50 MG CAPSULE PO PRN (21:20)
[2016-10-08] MEDS: MOMETASONE FUROATE 220 MCG/IH INHALER IH SCH (21:22)
[2016-10-09] MEDS ORDERED: cloNIDine HCL 0.1 MG TABLET PO ONE (01:13)
[2016-10-09] MEDS: hydrOXYzine PAMOATE 50 MG CAPSULE (FP) PO PRN ×2 (01:27→06:24)
[2016-10-09] MEDS: FUROSEMIDE 40 MG TABLET (FP) PO SCH ×2 (09:45→21:14)
[2016-10-09] MEDS: DARUNAVIR ETHANOLATE 800 MG TAB PO SCH (09:45)
[2016-10-09] MEDS: CARVEDILOL 12.5 MG TABLET (FP) PO SCH ×2 (09:45→21:14)
[2016-10-09] MEDS: ASPIRIN 81 MG CHEWABLE TABLETS PO SCH (09:45)
[2016-10-09] MEDS: PRENATAL VITAMINS W/ FOLIC ACID TABLET (FP) PO SCH (09:45)
[2016-10-09] MEDS: PATIENT'S OWN MEDICATION (NON-FORMULARY) (Abacavir Sulfate/Lamivudine [Epzicom Tablet] 1 T PO SCH (09:46)
[2016-10-09] MEDS: RITONAVIR 100 MG TABLET PO SCH (09:46)
[2016-10-09] MEDS: ALBUTEROL SO4 6.7 GM HFA INHALER IH PRN (09:48)
[2016-10-09] MEDS: MOMETASONE FUROATE 220 MCG/IH INHALER IH SCH (21:14)
[2016-10-09] MEDS: THIAMINE HCL 100 MG TABLET (FP) PO SCH (21:14)
[2016-10-09] MEDS: TAMSULOSIN HCL 0.4 MG CAP.ER.24H (FP) PO SCH (21:14)
[2016-10-09] MEDS: diphenhydrAMINE HCL 50 MG CAPSULE PO PRN (21:14)
--- NOTE | 2016-10-09 23:38 | EKG ---
Test Reason : Blood Pressure : / mmHG Vent. Rate : 142 BPM Atrial Rate : 144 BPM P-R Int : 000 ms QRS Dur : 104 ms QT Int : 292 ms P-R-T Axes : 105 043 025 degrees QTc Int : 449 ms UNDETERMINED RHYTHM POSSIBLY ATRIAL FIBRILLATION WITH RAPID VENTRICULAR RESPONSE NONSPECIFIC ST ABNORMALITY ABNORMAL ECG WHEN COMPARED WITH ECG OF 01-OCT-2016 10:34, VENT. RATE HAS INCREASED CLINICAL CORRELATION IS RECOMMENDED Confirmed by LARON ALCANTAR, MARTHA ([id number]) on 10/09/2016 11:38:08 PM Referred By: Danica Esteban Confirmed By:MARTHA LARRY MD
[2016-10-10] MEDS: FUROSEMIDE 40 MG TABLET (FP) PO SCH ×2 (09:52→21:15)
[2016-10-10] MEDS: PRENATAL VITAMINS W/ FOLIC ACID TABLET (FP) PO SCH (09:52)
[2016-10-10] MEDS: ASPIRIN 81 MG CHEWABLE TABLETS PO SCH (09:52)
[2016-10-10] MEDS: DARUNAVIR ETHANOLATE 800 MG TAB PO SCH (09:52)
[2016-10-10] MEDS: PATIENT'S OWN MEDICATION (NON-FORMULARY) (Abacavir Sulfate/Lamivudine [Epzicom Tablet] 1 T PO SCH (09:52)
[2016-10-10] MEDS: CARVEDILOL 12.5 MG TABLET (FP) PO SCH ×2 (09:52→21:15)
[2016-10-10] MEDS: RITONAVIR 100 MG TABLET PO SCH (09:53)
[2016-10-10] MEDS: ALBUTEROL SO4 6.7 GM HFA INHALER IH PRN (09:55)
[2016-10-10 09:59] LABS: MCH 29.5 pg (25.7-33.7); MCHC 32.1 g/dl (32.0-35.9); MEAN PLT VOLUME 10.2 fl (7.5-11.1); PLATELET COUNT 145 K/MM3 (134-434); RDW 16.8 % (11.9-15.9)
[2016-10-10 10:02] LABS: ALBUMIN 2.8 g/dl (3.4-5.0); BILIRUBIN,TOTAL 0.4 mg/dL (0.2-1.0); CALCIUM 8.6 mg/dL (8.5-10.1)
[2016-10-10 10:05] LABS: CREATININE 1.4 mg/dL (0.7-1.3); TOT PROT 8.7 g/dl (6.4-8.2)
[2016-10-10 21:09] LABS: URINE APPEARANCE CLEAR; URINE BILIRUBIN NEGATIVE (NEGATIVE); URINE COLOR LTYELLOW; URINE GLUCOSE (UA) NEGATIVE (NEGATIVE); URINE KETONE NEGATIVE (NEGATIVE); URINE NITRITE NEGATIVE (NEGATIVE); URINE PROTEIN NEGATIVE (NEGATIVE); URINE UROBILINOGEN NEGATIVE E.U./dl (0.2-1.0)
[2016-10-10 21:10] LABS: URINE BLOOD 2+ (NEGATIVE); URINE LEUK ESTERASE 1+ (NEGATIVE)
[2016-10-10 21:15] LABS: URINE RBC 86 /hpf (0-3); URINE WBC 20 /hpf (3-5)
[2016-10-10] MEDS: THIAMINE HCL 100 MG TABLET (FP) PO SCH (21:15)
[2016-10-10] MEDS: diphenhydrAMINE HCL 50 MG CAPSULE PO PRN (21:15)
[2016-10-10] MEDS: MOMETASONE FUROATE 220 MCG/IH INHALER IH SCH (21:15)
[2016-10-10] MEDS: TAMSULOSIN HCL 0.4 MG CAP.ER.24H (FP) PO SCH (21:15)
[2016-10-11] MEDS: RITONAVIR 100 MG TABLET PO SCH (10:00)
[2016-10-11] MEDS: PRENATAL VITAMINS W/ FOLIC ACID TABLET (FP) PO SCH (10:01)
[2016-10-11] MEDS: CARVEDILOL 12.5 MG TABLET (FP) PO SCH ×2 (10:01→21:11)
[2016-10-11] MEDS: FUROSEMIDE 40 MG TABLET (FP) PO SCH ×2 (10:01→21:11)
[2016-10-11] MEDS: ASPIRIN 81 MG CHEWABLE TABLETS PO SCH (10:01)
[2016-10-11] MEDS: DARUNAVIR ETHANOLATE 800 MG TAB PO SCH (10:01)
[2016-10-11] MEDS: PATIENT'S OWN MEDICATION (NON-FORMULARY) (Abacavir Sulfate/Lamivudine [Epzicom Tablet] 1 T PO SCH (10:02)
--- NOTE | 2016-10-11 11:57 | PN ---
[facility] Progress Note Note: Laboratory Last Values WBC 9.0 K/mm3 (4.0-10.0) D 10/10/16 07:00 RBC 4.05 M/mm3 (4.00-5.60) 10/10/16 07:00 Hgb 11.9 GM/dL (11.7-16.9) D 10/10/16 07:00 Hct 37.3 % (35.4-49) 10/10/16 07:00 MCV 92.0 fl (80-96) 10/10/16 07:00 MCHC 32.1 g/dl (32.0-35.9) 10/10/16 07:00 RDW 16.8 % (11.9-15.9) H 10/10/16 07:00 Plt Count 145 K/MM3 (134-434) 10/10/16 07:00 MPV 10.2 fl (7.5-11.1) 10/10/16 07:00 Sodium 141 mmol/L (136-145) 10/10/16 07:00 Potassium 3.9 mmol/L (3.5-5.1) 10/10/16 07:00 Chloride 107 mmol/L (98-107) 10/10/16 07:00 Carbon Dioxide 28 mmol/L (21-32) D 10/10/16 07:00 Anion Gap 6 (8-16) L 10/10/16 07:00 BUN 37 mg/dL (7-18) H D 10/10/16 07:00 Creatinine 1.4 mg/dL (0.7-1.3) H D 10/10/16 07:00 Creat Clearance w eGFR 52.81 (>60) 10/10/16 07:00 Random Glucose 97 mg/dL (74-106) 10/10/16 07:00 Calcium 8.6 mg/dL (8.5-10.1) 10/10/16 07:00 Total Bilirubin 0.4 mg/dL (0.2-1.0) D 10/10/16 07:00 AST 32 U/L (15-37) D 10/10/16 07:00 ALT 37 U/L (12-78) 10/10/16 07:00 Alkaline Phosphatase 109 U/L (45-117) 10/10/16 07:00 Total Protein 8.7 g/dl (6.4-8.2) H 10/10/16 07:00 Albumin 2.8 g/dl (3.4-5.0) L 10/10/16 07:00 Urine Color Ltyellow 10/10/16 20:00 Urine Appearance Clear 10/10/16 20:00 Urine pH 6.0 (5.0-8.0) 10/10/16 20:00 Ur Specific [place] 1.014 (1.001-1.035) 10/10/16 20:00 Urine Protein Negative (NEGATIVE) 10/10/16 20:00 Urine Glucose (UA) Negative (NEGATIVE) 10/10/16 20:00 Urine Ketones Negative (NEGATIVE) 10/10/16 20:00 Urine Blood 2+ (NEGATIVE) H 10/10/16 20:00 Urine Nitrite Negative (NEGATIVE) 10/10/16 20:00 Urine Bilirubin Negative (NEGATIVE) 10/10/16 20:00 Urine Urobilinogen Negative E.U./dl (0.2-1.0) 10/10/16 20:00 Ur Leukocyte Esterase 1+ (NEGATIVE) H D 10/10/16 20:00 Urine RBC 86 /hpf (0-3) 10/10/16 20:00 Urine WBC 20 /hpf (3-5) 10/10/16 20:00 Ur Epithelial Cells Rare /hpf (FEW) 10/10/16 20:00 WILL MONITOR PATIENT FOR RENAL INSUFFICIENCY WILL REPEAT CMP AND UA ON MON 12/15/16 CHEST XRAY REPEAT IN AM
[2016-10-11] MEDS: MOMETASONE FUROATE 220 MCG/IH INHALER IH SCH (21:10)
[2016-10-11] MEDS: TAMSULOSIN HCL 0.4 MG CAP.ER.24H (FP) PO SCH (21:11)
[2016-10-11] MEDS: diphenhydrAMINE HCL 50 MG CAPSULE PO PRN (21:11)
[2016-10-11] MEDS: THIAMINE HCL 100 MG TABLET (FP) PO SCH (21:11)
[2016-10-12] MEDS: FUROSEMIDE 40 MG TABLET (FP) PO SCH ×2 (09:44→21:11)
[2016-10-12] MEDS: CARVEDILOL 12.5 MG TABLET (FP) PO SCH ×2 (09:44→21:11)
[2016-10-12] MEDS: ASPIRIN 81 MG CHEWABLE TABLETS PO SCH (09:44)
[2016-10-12] MEDS: PRENATAL VITAMINS W/ FOLIC ACID TABLET (FP) PO SCH (09:44)
[2016-10-12] MEDS: PATIENT'S OWN MEDICATION (NON-FORMULARY) (Abacavir Sulfate/Lamivudine [Epzicom Tablet] 1 T PO SCH (09:44)
[2016-10-12] MEDS: DARUNAVIR ETHANOLATE 800 MG TAB PO SCH (09:45)
[2016-10-12] MEDS: RITONAVIR 100 MG TABLET PO SCH (10:13)
[2016-10-12] MEDS: MOMETASONE FUROATE 220 MCG/IH INHALER IH SCH (21:10)
[2016-10-12] MEDS: THIAMINE HCL 100 MG TABLET (FP) PO SCH (21:10)
[2016-10-12] MEDS: diphenhydrAMINE HCL 50 MG CAPSULE PO PRN (21:11)
[2016-10-12] MEDS: TAMSULOSIN HCL 0.4 MG CAP.ER.24H (FP) PO SCH (21:11)
[2016-10-13] MEDS: PRENATAL VITAMINS W/ FOLIC ACID TABLET (FP) PO SCH (09:27)
[2016-10-13] MEDS: FUROSEMIDE 40 MG TABLET (FP) PO SCH ×2 (09:28→21:17)
[2016-10-13] MEDS: PATIENT'S OWN MEDICATION (NON-FORMULARY) (Abacavir Sulfate/Lamivudine [Epzicom Tablet] 1 T PO SCH (09:28)
[2016-10-13] MEDS: ASPIRIN 81 MG CHEWABLE TABLETS PO SCH (09:28)
[2016-10-13] MEDS: DARUNAVIR ETHANOLATE 800 MG TAB PO SCH (09:28)
[2016-10-13] MEDS: CARVEDILOL 12.5 MG TABLET (FP) PO SCH ×2 (09:28→21:17)
[2016-10-13] MEDS: RITONAVIR 100 MG TABLET PO SCH (09:28)
[2016-10-13 10:09] LABS: URINE APPEARANCE CLEAR; URINE BILIRUBIN NEGATIVE (NEGATIVE); URINE BLOOD NEGATIVE (NEGATIVE); URINE COLOR STRAW; URINE GLUCOSE (UA) NEGATIVE (NEGATIVE); URINE KETONE NEGATIVE (NEGATIVE); URINE NITRITE NEGATIVE (NEGATIVE); URINE PROTEIN NEGATIVE (NEGATIVE); URINE UROBILINOGEN NEGATIVE E.U./dl (0.2-1.0)
[2016-10-13 10:18] LABS: URINE LEUK ESTERASE 2+ (NEGATIVE)
[2016-10-13 10:19] LABS: URINE RBC 1 /hpf (0-3); URINE WBC 7 /hpf (3-5)
[2016-10-13] MEDS: diphenhydrAMINE HCL 50 MG CAPSULE PO PRN (21:17)
[2016-10-13] MEDS: THIAMINE HCL 100 MG TABLET (FP) PO SCH (21:17)
[2016-10-13] MEDS: TAMSULOSIN HCL 0.4 MG CAP.ER.24H (FP) PO SCH (21:17)
[2016-10-13] MEDS: MOMETASONE FUROATE 220 MCG/IH INHALER IH SCH (21:18)
[2016-10-14] MEDS: hydrOXYzine PAMOATE 50 MG CAPSULE (FP) PO PRN ×2 (06:13→22:26)
[2016-10-14] MEDS: CARVEDILOL 12.5 MG TABLET (FP) PO SCH ×2 (09:46→21:08)
[2016-10-14] MEDS: FUROSEMIDE 40 MG TABLET (FP) PO SCH ×2 (09:46→21:07)
[2016-10-14] MEDS: PATIENT'S OWN MEDICATION (NON-FORMULARY) (Abacavir Sulfate/Lamivudine [Epzicom Tablet] 1 T PO SCH (09:46)
[2016-10-14] MEDS: ASPIRIN 81 MG CHEWABLE TABLETS PO SCH (09:46)
[2016-10-14] MEDS: RITONAVIR 100 MG TABLET PO SCH (09:46)
[2016-10-14] MEDS: DARUNAVIR ETHANOLATE 800 MG TAB PO SCH (09:46)
[2016-10-14] MEDS: PRENATAL VITAMINS W/ FOLIC ACID TABLET (FP) PO SCH (09:46)
[2016-10-14] MEDS: MOMETASONE FUROATE 220 MCG/IH INHALER IH SCH (21:08)
[2016-10-14] MEDS: THIAMINE HCL 100 MG TABLET (FP) PO SCH (21:08)
[2016-10-14] MEDS: TAMSULOSIN HCL 0.4 MG CAP.ER.24H (FP) PO SCH (21:08)
[2016-10-14] MEDS: diphenhydrAMINE HCL 50 MG CAPSULE PO PRN (21:09)
[2016-10-15] MEDS: RITONAVIR 100 MG TABLET PO SCH (09:55)
[2016-10-15] MEDS: PATIENT'S OWN MEDICATION (NON-FORMULARY) (Abacavir Sulfate/Lamivudine [Epzicom Tablet] 1 T PO SCH (09:56)
[2016-10-15] MEDS: FUROSEMIDE 40 MG TABLET (FP) PO SCH ×2 (09:56→21:16)
[2016-10-15] MEDS: ASPIRIN 81 MG CHEWABLE TABLETS PO SCH (09:56)
[2016-10-15] MEDS: CARVEDILOL 12.5 MG TABLET (FP) PO SCH ×2 (09:56→21:16)
[2016-10-15] MEDS: PRENATAL VITAMINS W/ FOLIC ACID TABLET (FP) PO SCH (09:56)
[2016-10-15] MEDS: hydrOXYzine PAMOATE 50 MG CAPSULE (FP) PO PRN (09:57)
[2016-10-15] MEDS: DARUNAVIR ETHANOLATE 800 MG TAB PO SCH (09:58)
[2016-10-15 17:04] LABS: ALBUMIN 2.7 g/dl (3.4-5.0); BILIRUBIN,TOTAL 0.6 mg/dL (0.2-1.0); CALCIUM 8.1 mg/dL (8.5-10.1); COCKROFT - GAULT 73.68; CREATININE 1.5 mg/dL (0.7-1.3); TOT PROT 7.8 g/dl (6.4-8.2)
[2016-10-15] MEDS: diphenhydrAMINE HCL 50 MG CAPSULE PO PRN (21:16)
[2016-10-15] MEDS: TAMSULOSIN HCL 0.4 MG CAP.ER.24H (FP) PO SCH (21:16)
[2016-10-15] MEDS: THIAMINE HCL 100 MG TABLET (FP) PO SCH (21:17)
[2016-10-15] MEDS: MOMETASONE FUROATE 220 MCG/IH INHALER IH SCH (21:17)
[2016-10-16] MEDS: PATIENT'S OWN MEDICATION (NON-FORMULARY) (Abacavir Sulfate/Lamivudine [Epzicom Tablet] 1 T PO SCH (09:41)
[2016-10-16] MEDS: CARVEDILOL 12.5 MG TABLET (FP) PO SCH ×2 (09:41→21:47)
[2016-10-16] MEDS: ASPIRIN 81 MG CHEWABLE TABLETS PO SCH (09:41)
[2016-10-16] MEDS: FUROSEMIDE 40 MG TABLET (FP) PO SCH ×2 (09:41→21:47)
[2016-10-16] MEDS: PRENATAL VITAMINS W/ FOLIC ACID TABLET (FP) PO SCH (09:41)
[2016-10-16] MEDS: ALBUTEROL SO4 6.7 GM HFA INHALER IH PRN (09:42)
[2016-10-16] MEDS: RITONAVIR 100 MG TABLET PO SCH (09:42)
[2016-10-16] MEDS: DARUNAVIR ETHANOLATE 800 MG TAB PO SCH (10:44)
--- NOTE | 2016-10-16 11:24 | PN ---
S Progress Note Note: pt w/o complaints pt labs essentially unchanged. Vital Signs Temperature 97.2 F L 10/16/16 06:45 Pulse Rate 100 H 10/16/16 06:45 Respiratory Rate 18 10/16/16 06:45 Blood Pressure 128/77 10/16/16 06:45 O2 Sat by Pulse Oximetry (%) Laboratory Tests 10/10/16 10/10/16 10/10/16 07:00 07:00 20:00 WBC 9.0 D RBC 4.05 Hgb 11.9 D Hct 37.3 MCV 92.0 MCHC 32.1 RDW 16.8 H Plt Count 145 MPV 10.2 Sodium 141 Potassium 3.9 Chloride 107 Carbon Dioxide 28 D Anion Gap 6 L BUN 37 H D Creatinine 1.4 H D Creat Clearance w eGFR 52.81 Random Glucose 97 Calcium 8.6 Total Bilirubin 0.4 D AST 32 D ALT 37 Alkaline Phosphatase 109 Total Protein 8.7 H Albumin 2.8 L Urine Color Ltyellow Urine Appearance Clear Urine pH 6.0 Ur Specific [place] 1.014 Urine Protein Negative Urine Glucose (UA) Negative Urine Ketones Negative Urine Blood 2+ H Urine Nitrite Negative Urine Bilirubin Negative Urine Urobilinogen Negative Ur Leukocyte Esterase 1+ H D Urine RBC 86 Urine WBC 20 Ur Epithelial Cells Rare 10/13/16 10/15/16 08:05 09:15 WBC RBC Hgb Hct MCV MCHC RDW Plt Count MPV Sodium 140 Potassium 3.9 Chloride 106 Carbon Dioxide 23 Anion Gap 11 BUN 29 H D Creatinine 1.5 H Creat Clearance w eGFR 48.77 Random Glucose 123 H D Calcium 8.1 L Total Bilirubin 0.6 D AST 40 H D ALT 42 Alkaline Phosphatase 105 Total Protein 7.8 Albumin 2.7 L Urine Color Straw Urine Appearance Clear Urine pH 6.0 Ur Specific [place] 1.010 Urine Protein Negative Urine Glucose (UA) Negative Urine Ketones Negative Urine Blood Negative Urine Nitrite Negative Urine Bilirubin Negative Urine Urobilinogen Negative Ur Leukocyte Esterase 2+ H Urine RBC 1 Urine WBC 7 Ur Epithelial Cells Rare weight 195-205 plan cont present med s nutritional eval cont to monitor
[2016-10-16] MEDS: MOMETASONE FUROATE 220 MCG/IH INHALER IH SCH (21:46)
[2016-10-16] MEDS: TAMSULOSIN HCL 0.4 MG CAP.ER.24H (FP) PO SCH (21:47)
[2016-10-16] MEDS: THIAMINE HCL 100 MG TABLET (FP) PO SCH (21:47)
[2016-10-16] MEDS: hydrOXYzine PAMOATE 50 MG CAPSULE (FP) PO PRN (21:48)
[2016-10-17] MEDS: PATIENT'S OWN MEDICATION (NON-FORMULARY) (Abacavir Sulfate/Lamivudine [Epzicom Tablet] 1 T PO SCH (09:50)
[2016-10-17] MEDS: RITONAVIR 100 MG TABLET PO SCH (09:50)
[2016-10-17] MEDS: FUROSEMIDE 40 MG TABLET (FP) PO SCH ×2 (09:50→21:30)
[2016-10-17] MEDS: DARUNAVIR ETHANOLATE 800 MG TAB PO SCH (09:50)
[2016-10-17] MEDS: CARVEDILOL 12.5 MG TABLET (FP) PO SCH ×2 (09:50→21:30)
[2016-10-17] MEDS: ASPIRIN 81 MG CHEWABLE TABLETS PO SCH (09:50)
[2016-10-17] MEDS: PRENATAL VITAMINS W/ FOLIC ACID TABLET (FP) PO SCH (09:50)
[2016-10-17] MEDS: TAMSULOSIN HCL 0.4 MG CAP.ER.24H (FP) PO SCH (21:30)
[2016-10-17] MEDS: THIAMINE HCL 100 MG TABLET (FP) PO SCH (21:30)
[2016-10-17] MEDS: diphenhydrAMINE HCL 50 MG CAPSULE PO PRN (21:30)
[2016-10-17] MEDS: MOMETASONE FUROATE 220 MCG/IH INHALER IH SCH (21:30)
[2016-10-18 06:53] VITALS: BP 127/79; PULSE 122; TEMP 97.8
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
[2016-10-18] MEDS: DARUNAVIR ETHANOLATE 800 MG TAB PO SCH (09:57)
[2016-10-18] MEDS: PRENATAL VITAMINS W/ FOLIC ACID TABLET (FP) PO SCH (09:57)
[2016-10-18] MEDS: ASPIRIN 81 MG CHEWABLE TABLETS PO SCH (09:57)
[2016-10-18] MEDS: RITONAVIR 100 MG TABLET PO SCH (09:58)
[2016-10-18] MEDS: FUROSEMIDE 40 MG TABLET (FP) PO SCH (09:58)
[2016-10-18] MEDS: PATIENT'S OWN MEDICATION (NON-FORMULARY) (Abacavir Sulfate/Lamivudine [Epzicom Tablet] 1 T PO SCH (09:58)
[2016-10-18] MEDS: CARVEDILOL 12.5 MG TABLET (FP) PO SCH (09:58)
== END 2016-10-18 11:30 | disposition home or self-care (01) | DRG 772 ==
LOC: YASAS 13:12 → Y5N 13:13
PROVIDERS: ADMIT Psychiatry & Neurology Psychiatry; ATTEND Psychiatry & Neurology Psychiatry
PROC: HZ42ZZZ Group Counseling for Substance Abuse Treatment, Cognitive-Behavioral (ICD-10-PCS; principal; 2016-10-18)
DX: F10.20 Alcohol dependence, uncomplicated (principal); F14.20 Cocaine dependence, uncomplicated; F17.210 Nicotine dependence, cigarettes, uncomplicated
CPT/HCPCS: 36415; 71010-TC; 71020-TC; 80053; 81003; 81015; 85027; 93005; 93010

== ENCOUNTER 2017-06-12 13:50 | Inpatient (IN) | payer OTHER ==
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
[2017-06-12 17:04] VITALS: BMI 27.6
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
[2017-06-12] MEDS ORDERED: MAG HYDROX/AL HYDROX/SIMETH 30 ML UNIT-DOSE CUP PO PRN (18:21)
[2017-06-12] MEDS ORDERED: MAGNESIUM CITRATE 300 ML BOTTLE PO PRN (18:21)
[2017-06-12] MEDS ORDERED: chlordiazePOXIDE HCL 25 MG CAPSULE PO PRN (18:21)
[2017-06-12] MEDS ORDERED: NICOTINE POLACRILEX 2 MG GUM BC PRN (18:21)
[2017-06-12] MEDS ORDERED: IBUPROFEN 400 MG TABLET (FP) PO PRN (18:21)
[2017-06-12] MEDS ORDERED: guaiFENesin/D-METHORPHAN HB 10 ML UNIT-DOSE CUPS PO PRN (18:21)
[2017-06-12] MEDS ORDERED: LOPERAMIDE HCL 2 MG CAPSULE PO PRN (18:21)
[2017-06-12] MEDS ORDERED: P-EPHED 60MG/TRIPROLIDI 2.5MG TABLET PO PRN (18:21)
[2017-06-12] MEDS ORDERED: ACETAMINOPHEN 325 MG TABLET (FP) PO PRN (18:21)
[2017-06-12] MEDS ORDERED: MENTHOL/PHENOL 1 EACH UD MM PRN (18:21)
[2017-06-12] MEDS ORDERED: MAGNESIUM HYDROX 2400MG/30ML ORAL SUSPENSION 30 ML CUP PO PRN (18:21)
[2017-06-12] MEDS ORDERED: hydrOXYzine PAMOATE 50 MG CAPSULE (FP) PO PRN (18:21)
[2017-06-12] MEDS ORDERED: ALBUTEROL SO4 18 GM HFA INHALER IH PRN (18:22)
[2017-06-12] MEDS ORDERED: PATIENT'S OWN MEDICATION (NON-FORMULARY) (Ipratropium/Albuterol Sulfate [Combivent Respima IH SCH (22:00)
[2017-06-12] MEDS: chlordiazePOXIDE HCL 25 MG CAPSULE PO SCH (22:37)
[2017-06-12] MEDS: THIAMINE HCL 100 MG TABLET (FP) PO SCH (22:37)
[2017-06-12] MEDS: CYCLOBENZAPRINE HCL 10 MG TABLET (FP) PO SCH (22:37)
[2017-06-12] MEDS: TORSEMIDE 20 MG TABLET (FP) PO SCH (22:40)
[2017-06-12] MEDS: NICOTINE 7 MG/24 HOURS TOPICAL PATCH TD SCH (22:47)
[2017-06-12] MEDS: LIDOCAINE PATCH REMOVAL MC SCH (22:48)
[2017-06-12] MEDS: LIDOCAINE 5% TOPICAL PATCH TP SCH (22:48)
[2017-06-12 23:41] LABS: URINE APPEARANCE CLEAR; URINE BILIRUBIN NEGATIVE (NEGATIVE); URINE BLOOD NEGATIVE (NEGATIVE); URINE COLOR YELLOW; URINE GLUCOSE (UA) NEGATIVE (NEGATIVE); URINE KETONE NEGATIVE (NEGATIVE); URINE LEUK ESTERASE NEGATIVE (NEGATIVE); URINE NITRITE NEGATIVE (NEGATIVE)
[2017-06-12 23:42] LABS: URINE PROTEIN 1+ (NEGATIVE)
[2017-06-13] MEDS: CYCLOBENZAPRINE HCL 10 MG TABLET (FP) PO SCH ×2 (07:10→14:09)
[2017-06-13] MEDS: chlordiazePOXIDE HCL 25 MG CAPSULE PO SCH ×4 (07:10→22:41)
[2017-06-13] MEDS ORDERED: ALBUTEROL SO4 2.5/IPRATROPIUM 0.5 INH SOL 3 ML VIAL.NEB. NEB PRN (09:04)
[2017-06-13] MEDS ORDERED: PATIENT'S OWN MEDICATION (NON-FORMULARY) (Abacavir Sulfate/Lamivudine [Epzicom Tablet] 1 T PO SCH (10:00)
[2017-06-13 10:08] LABS: MCH 29.9 pg (25.7-33.7); MCHC 32.4 g/dl (32.0-35.9); MEAN CELL VOLUME 92.3 fl (80-96); MEAN PLT VOLUME 10.7 fl (7.5-11.1); PLATELET COUNT 164 K/MM3 (134-434); RDW 15.9 % (11.9-15.9); WHITE BLOOD COUNT 4.3 K/mm3 (4.0-10.0)
[2017-06-13 10:22] LABS: ANION GAP 7 (8-16); CALCIUM 8.6 mg/dL (8.5-10.1); CO2 29 mmol/L (21-32); GLUCOSE,RANDOM 71 mg/dL (74-106)
[2017-06-13 10:27] LABS: ALK PHOS 114 U/L (45-117); BILIRUBIN,TOTAL 0.8 mg/dL (0.2-1.0); CREATININE 1.8 mg/dL (0.7-1.3); SGOT/AST 56 U/L (15-37); SGPT/ALT 39 U/L (12-78); TOT PROT 9.8 g/dl (6.4-8.2)
[2017-06-13] MEDS: DARUNAVIR ETHANOLATE 800 MG TAB PO SCH (10:30)
[2017-06-13] MEDS: RITONAVIR 100 MG TABLET PO SCH (10:30)
[2017-06-13] MEDS: ASPIRIN 81 MG CHEWABLE TABLETS PO SCH (10:30)
[2017-06-13] MEDS: TORSEMIDE 20 MG TABLET (FP) PO SCH ×2 (10:31→22:41)
[2017-06-13] MEDS: AMIODARONE HCL 200 MG TABLET (FP) PO SCH (10:31)
[2017-06-13] MEDS: PRENATAL VITAMINS W/ FOLIC ACID TABLET (FP) PO SCH (10:31)
[2017-06-13] MEDS: ABACAVIR SULFATE 300 MG TABLET PO SCH (10:31)
[2017-06-13] MEDS: NICOTINE 7 MG/24 HOURS TOPICAL PATCH TD SCH (10:34)
[2017-06-13] MEDS: LIDOCAINE 5% TOPICAL PATCH TP SCH (10:35)
[2017-06-13] MEDS ORDERED: TORSEMIDE 20 MG TABLET (FP) PO SCH (11:30)
--- NOTE | 2017-06-13 11:43 | EKG ---
Test Reason : Blood Pressure : / mmHG Vent. Rate : 094 BPM Atrial Rate : 094 BPM P-R Int : 178 ms QRS Dur : 122 ms QT Int : 434 ms P-R-T Axes : 054 001 048 degrees QTc Int : 542 ms NORMAL SINUS RHYTHM WITH SINUS ARRHYTHMIA RSR' OR QR PATTERN IN V1 SUGGESTS RIGHT VENTRICULAR CONDUCTION DELAY BORDERLINE ECG WHEN COMPARED WITH ECG OF 12-JUN-2017 23:08, NO SIGNIFICANT CHANGE WAS FOUND Confirmed by KAHLIL ALCANTAR, FRANCISCO ([id number]) on 06/13/2017 11:42:33 AM Referred By: DELROY CACERES Confirmed By:FRANCISCO GUILLORY MD
--- NOTE | 2017-06-13 11:43 | EKG ---
Test Reason : Blood Pressure : / mmHG Vent. Rate : 089 BPM Atrial Rate : 089 BPM P-R Int : 162 ms QRS Dur : 122 ms QT Int : 426 ms P-R-T Axes : 056 -20 048 degrees QTc Int : 518 ms SINUS RHYTHM WITH MARKED SINUS ARRHYTHMIA POSSIBLE LEFT ATRIAL ENLARGEMENT RSR' OR QR PATTERN IN V1 SUGGESTS RIGHT VENTRICULAR CONDUCTION DELAY CANNOT RULE OUT INFERIOR INFARCT , AGE UNDETERMINED ABNORMAL ECG WHEN COMPARED WITH ECG OF 08-OCT-2016 22:55, VENT. RATE HAS DECREASED BY 53 BPM MINIMAL CRITERIA FOR INFERIOR INFARCT ARE NOW PRESENT ST NO LONGER DEPRESSED IN INFERIOR LEADS Confirmed by FRANCISCO GUILLORY MD ([id number]) on 06/13/2017 11:43:35 AM Referred By: DELROY CACERES Confirmed By:FRANCISCO GUILLORY MD
[2017-06-13] MEDS ORDERED: TORSEMIDE 20 MG TABLET (FP) PO ONE (12:43)
[2017-06-13 14:27] LABS: URINE LEUK ESTERASE Negative (NEGATIVE)
--- NOTE | 2017-06-13 14:29 | CONSULT ---
[facility] Psychiatric Consult - Data Date of interview: 06/13/17 Admission source: [facility] Identifying data: This is 57 years old male with no psychiatric hospitalization history nintoxicated with: Alcohol, Cocaine and Nicotine Substance Abuse History: - Smoking Cessation. Smoking history: Current every day smoker. Have you smoked in the past 12 months: Yes. Aproximately how many cigarettes per day: 3. Cigars Per Day: 0. Hx Chewing Tobacco Use: No. Initiated information on smoking cessation: Yes. 'Breaking Loose' booklet given : 06/12/17. - Substance & Tx. History. Hx Alcohol Use: Yes. Hx Substance Use : Yes. Substance Use Type: Alcohol, Cocaine. Hx Substance Use Treatment: Yes ( [facility]). - Substances Abused. Alcohol. Route: Oral. Frequency: Daily. Amount used: 3 PINTS VODKA. Age of first use: 20. Date of Last Use: . Cocaine. Route: Smoking. Frequency: Daily. Amount used: $200. Age of first use: 20. Date of Last Use: 06/12/17 Medical History: LBP, COPD, Asthma, HIV+, HepC+, CHF History Psychiatric History: Patient denies past psychiatric history, denies suicidal history as well Physical/Sexual Abuse/Trauma History: Unclear Additional Comment: Observation. Detox Unit Care Protocol Mental Status Exam - Mental Status Exam Alert and Oriented to: Person Cognitive Function: Fair Patient Appearance: Unkempt Mood: Sad, Withdrawn Affect: Flat Patient Behavior: Sedated Speech Pattern: Slurred Voice Loudness: Mildly Soft/Quiet Thought Process: Circumstantial Thought Disorder: Being Controlled Hallucinations: Denies Suicidal Ideation: Denies Homicidal Ideation: Denies Insight/Judgement: Fair Sleep: Difficulty falling asleep Appetite: Fair Muscle strength/Tone: Mild Hypertonicity Gait/Station: Shuffling Additional Comments: Observation. Detox Unit Care Protocol Psychiatric Findings - Problem List ([place] 1, 2,3) (1) Drug-induced mood disorder Current Visit: Yes Status: Acute (2) Alcohol dependence Current Visit: No Status: Acute (3) Alcohol dependence with uncomplicated withdrawal Current Visit: No Status: Acute (4) Cocaine dependence Current Visit: No Status: Acute (5) Cocaine dependence, uncomplicated Current Visit: No Status: Acute (6) Nicotine dependence Current Visit: No Status: Chronic Qualifiers: Nicotine product type: cigarettes Substance use status: uncomplicated Qualified Code(s): F17.210 - Nicotine dependence, cigarettes, uncomplicated - Initial Treatment Plan Initial Treatment Plan: Observation. Detox Unit Care Protocol
--- NOTE | 2017-06-13 14:43 | PN ---
[facility] CIWA - CIWA Score Nausea/Vomitin-No Nausea/No Vomiting Muscle Tremors: 4-Moderate,w/Arms Extend Anxiety: 4-Mod. Anxious/Guarded Agitation: 2 Paroxysmal Sweats: 3 Orientation: 0-Oriented Tacttile Disturbances: 2-Mild Itch/Numbness/Burn Auditory Disturbances: 0-None Visual Disturbances: 2-Mild Sensitivity Headache: 0-None Present CIWA-Ar Total Score: 17 S Progress Note (SOAP) Subjective: Body Aches, Anxious, Tremors. Objective: PT. A & O X 3, OBSERVED AMBULATING ON UNIT. NO ACUTE DISTRESS. 06/13/17 14:44 Vital Signs Temperature 99.2 F 06/13/17 13:00 Pulse Rate 99 H 06/13/17 13:00 Respiratory Rate 20 06/13/17 13:00 Blood Pressure 131/69 06/13/17 13:00 O2 Sat by Pulse Oximetry (%) Laboratory Tests 06/12/17 06/13/17 06/13/17 21:35 07:00 07:00 WBC 4.3 D RBC 4.40 Hgb 13.1 D Hct 40.6 MCV 92.3 MCH 29.9 MCHC 32.4 RDW 15.9 Plt Count 164 MPV 10.7 Sodium 139 Potassium 3.7 Chloride 103 Carbon Dioxide 29 D Anion Gap 7 L BUN 37 H D Creatinine 1.8 H Creat Clearance w eGFR 39.37 Random Glucose 71 L D Calcium 8.6 Total Bilirubin 0.8 D AST 56 H D ALT 39 Alkaline Phosphatase 114 Total Protein 9.8 H D Albumin 3.0 L Urine Color Yellow Urine Appearance Clear Urine pH 7.0 Ur Specific [place] 1.017 Urine Protein 1+ H Urine Glucose (UA) Negative Urine Ketones Negative Urine Blood Negative Urine Nitrite Negative Urine Bilirubin Negative Urine Urobilinogen 2.0 Ur Leukocyte Esterase Negative RPR Titer 06/13/17 07:00 WBC RBC Hgb Hct MCV MCH MCHC RDW Plt Count MPV Sodium Potassium Chloride Carbon Dioxide Anion Gap BUN Creatinine Creat Clearance w eGFR Random Glucose Calcium Total Bilirubin AST ALT Alkaline Phosphatase Total Protein Albumin Urine Color Urine Appearance Urine pH Ur Specific [place] Urine Protein Urine Glucose (UA) Urine Ketones Urine Blood Urine Nitrite Urine Bilirubin Urine Urobilinogen Ur Leukocyte Esterase RPR Titer Reactive 1:1 H LABS NOTED. RPR REACTIVE ON PREVIOUS ADMISSIONS. MHA-TP RESULT PENDING. 06/13/17 14:50 Assessment: 06/13/17 14:45 WITHDRAWAL SYMPTOMS. Plan: CONTINUE DETOX. BMP ON 06/15/2017 FOR ABNORMAL ADMISSION RENAL LAB VALUES. D/C MAGNESIUM-CONTAINING MEDS AND IBUPROFEN. PER RECOMMENDATION OF [facility] PHARMACIST, PT.'S DAILY DOSE OF EPIVIR (LAMIVUDINE ) REDUCED TO 150 MG PO DAILY DUE TO RENAL INSUFFICIENCY. PATIENT ADVISED TO FOLLOW-UP WITH HIV MEDICAL PROVIDER AFTER DISCHARGE FROM DETOX FURTHER ASSESSMENT FOR HIV TREATMENT.
[2017-06-13] MEDS: LIDOCAINE PATCH REMOVAL MC SCH (22:41)
[2017-06-13] MEDS: THIAMINE HCL 100 MG TABLET (FP) PO SCH (22:42)
[2017-06-14] MEDS: chlordiazePOXIDE HCL 25 MG CAPSULE PO SCH ×3 (07:01→17:38)
[2017-06-14] MEDS: lamiVUDine 150 MG TABLET PO SCH (10:12)
[2017-06-14] MEDS: RITONAVIR 100 MG TABLET PO SCH (10:12)
[2017-06-14] MEDS: TORSEMIDE 20 MG TABLET (FP) PO SCH ×2 (10:12→22:18)
[2017-06-14] MEDS: ABACAVIR SULFATE 300 MG TABLET PO SCH (10:12)
[2017-06-14] MEDS: DARUNAVIR ETHANOLATE 800 MG TAB PO SCH (10:12)
[2017-06-14] MEDS: ASPIRIN 81 MG CHEWABLE TABLETS PO SCH (10:13)
[2017-06-14] MEDS: LIDOCAINE 5% TOPICAL PATCH TP SCH (10:13)
[2017-06-14] MEDS: AMIODARONE HCL 200 MG TABLET (FP) PO SCH (10:13)
[2017-06-14] MEDS: NICOTINE 7 MG/24 HOURS TOPICAL PATCH TD SCH (10:13)
[2017-06-14] MEDS: PRENATAL VITAMINS W/ FOLIC ACID TABLET (FP) PO SCH (10:13)
--- NOTE | 2017-06-14 14:05 | PN ---
[facility] CIWA - CIWA Score Nausea/Vomitin-No Nausea/No Vomiting Muscle Tremors: 3 Anxiety: 4-Mod. Anxious/Guarded Agitation: 2 Paroxysmal Sweats: 3 Orientation: 0-Oriented Tacttile Disturbances: 3-Moderate Itch/Numb/Burn Auditory Disturbances: 1-Very Mild Visual Disturbances: 0-None Headache: 0-None Present CIWA-Ar Total Score: 16 S Progress Note (SOAP) Subjective: Anxious, Tremors, Body Aches, Sweating. Objective: PT. A & O X 3, OBSERVED AMBULATING ON UNIT. NO ACUTE DISTRESS. PT. DENIES CHEST PAIN. 06/14/17 14:00 Vital Signs Temperature 97.8 F 06/14/17 13:04 Pulse Rate 106 H 06/14/17 13:04 Respiratory Rate 20 06/14/17 13:04 Blood Pressure 117/75 06/14/17 13:04 O2 Sat by Pulse Oximetry (%) Laboratory Tests 06/12/17 06/13/17 06/13/17 21:35 07:00 07:00 WBC 4.3 D RBC 4.40 Hgb 13.1 D Hct 40.6 MCV 92.3 MCH 29.9 MCHC 32.4 RDW 15.9 Plt Count 164 MPV 10.7 Sodium 139 Potassium 3.7 Chloride 103 Carbon Dioxide 29 D Anion Gap 7 L BUN 37 H D Creatinine 1.8 H Creat Clearance w eGFR 39.37 Random Glucose 71 L D Calcium 8.6 Total Bilirubin 0.8 D AST 56 H D ALT 39 Alkaline Phosphatase 114 Total Protein 9.8 H D Albumin 3.0 L Urine Color Yellow Urine Appearance Clear Urine pH 7.0 Ur Specific [place] 1.017 Urine Protein 1+ H Urine Glucose (UA) Negative Urine Ketones Negative Urine Blood Negative Urine Nitrite Negative Urine Bilirubin Negative Urine Urobilinogen 2.0 Ur Leukocyte Esterase Negative RPR Titer T.pallidum Ab (MHA) 06/13/17 07:00 WBC RBC Hgb Hct MCV MCH MCHC RDW Plt Count MPV Sodium Potassium Chloride Carbon Dioxide Anion Gap BUN Creatinine Creat Clearance w eGFR Random Glucose Calcium Total Bilirubin AST ALT Alkaline Phosphatase Total Protein Albumin Urine Color Urine Appearance Urine pH Ur Specific [place] Urine Protein Urine Glucose (UA) Urine Ketones Urine Blood Urine Nitrite Urine Bilirubin Urine Urobilinogen Ur Leukocyte Esterase RPR Titer Reactive 1:1 H T.pallidum Ab (MHA) Non reactive LABS NOTED. RPR MHA-TP RESULT NOTED. 06/14/17 21:24 Assessment: 06/14/17 14:01 WITHDRAWAL SYMPTOMS. Plan: CONTINUE DETOX. PATIENT ADVISED TO FOLLOW-UP WITH HIV CARE MEDICAL PROVIDER DR. Jarett ERNANDEZ ( [facility]) FOR FOLLOW-UP EVALUATION OF CURRENT HIV MEDICATION REGIMEN AND RENAL FUNCTION, AND FOR RPR RESULT WHILE ADMITTED FOR DETOX.
[2017-06-14] MEDS ORDERED: IBUPROFEN 400 MG TABLET (FP) PO PRN (21:24)
[2017-06-14] MEDS: chlordiazePOXIDE 5 MG CAPSULE PO SCH (22:19)
[2017-06-14] MEDS: THIAMINE HCL 100 MG TABLET (FP) PO SCH (22:19)
[2017-06-14] MEDS: LIDOCAINE PATCH REMOVAL MC SCH (23:23)
[2017-06-15] MEDS: chlordiazePOXIDE 5 MG CAPSULE PO SCH ×2 (05:06→10:22)
[2017-06-15 09:58] LABS: ANION GAP 8 (8-16); CALCIUM 9.3 mg/dL (8.5-10.1); CO2 31 mmol/L (21-32); CREATININE 2.1 mg/dL (0.7-1.3); GLUCOSE,RANDOM 77 mg/dL (74-106)
[2017-06-15] MEDS: ASPIRIN 81 MG CHEWABLE TABLETS PO SCH (10:22)
[2017-06-15] MEDS: AMIODARONE HCL 200 MG TABLET (FP) PO SCH (10:24)
[2017-06-15] MEDS: TORSEMIDE 20 MG TABLET (FP) PO SCH (10:24)
[2017-06-15] MEDS: RITONAVIR 100 MG TABLET PO SCH (10:25)
[2017-06-15] MEDS: lamiVUDine 150 MG TABLET PO SCH (10:25)
[2017-06-15] MEDS: NICOTINE 7 MG/24 HOURS TOPICAL PATCH TD SCH (10:25)
[2017-06-15] MEDS: PRENATAL VITAMINS W/ FOLIC ACID TABLET (FP) PO SCH (10:26)
[2017-06-15] MEDS: ABACAVIR SULFATE 300 MG TABLET PO SCH (10:26)
[2017-06-15] MEDS: DARUNAVIR ETHANOLATE 800 MG TAB PO SCH (10:26)
[2017-06-15] MEDS: LIDOCAINE 5% TOPICAL PATCH TP SCH (11:02)
[2017-06-15 13:23] VITALS: BP 141/96; PULSE 113; TEMP 96.1
--- NOTE | 2017-06-15 13:54 | PN ---
S Progress Note (SOAP) Subjective: Sweating, Anxious, Tremors. Objective: PT. A & O X 3, OBSERVED AMBULATING ON UNIT. NO ACUTE DISTRESS. 06/15/17 13:50 Vital Signs Temperature 96.1 F L 06/15/17 13:22 Pulse Rate 113 H 06/15/17 13:22 Respiratory Rate 20 06/15/17 13:22 Blood Pressure 141/96 06/15/17 13:22 O2 Sat by Pulse Oximetry (%) Laboratory Tests 06/12/17 06/13/17 06/13/17 21:35 07:00 07:00 WBC 4.3 D RBC 4.40 Hgb 13.1 D Hct 40.6 MCV 92.3 MCH 29.9 MCHC 32.4 RDW 15.9 Plt Count 164 MPV 10.7 Sodium 139 Potassium 3.7 Chloride 103 Carbon Dioxide 29 D Anion Gap 7 L BUN 37 H D Creatinine 1.8 H Creat Clearance w eGFR 39.37 Random Glucose 71 L D Calcium 8.6 Total Bilirubin 0.8 D AST 56 H D ALT 39 Alkaline Phosphatase 114 Total Protein 9.8 H D Albumin 3.0 L Urine Color Yellow Urine Appearance Clear Urine pH 7.0 Ur Specific [place] 1.017 Urine Protein 1+ H Urine Glucose (UA) Negative Urine Ketones Negative Urine Blood Negative Urine Nitrite Negative Urine Bilirubin Negative Urine Urobilinogen 2.0 Ur Leukocyte Esterase Negative RPR Titer T.pallidum Ab (MHA) 06/13/17 06/15/17 07:00 07:50 WBC RBC Hgb Hct MCV MCH MCHC RDW Plt Count MPV Sodium 141 Potassium 4.1 Chloride 102 Carbon Dioxide 31 Anion Gap 8 BUN 39 H Creatinine 2.1 H Creat Clearance w eGFR Random Glucose 77 Calcium 9.3 Total Bilirubin AST ALT Alkaline Phosphatase Total Protein Albumin Urine Color Urine Appearance Urine pH Ur Specific [place] Urine Protein Urine Glucose (UA) Urine Ketones Urine Blood Urine Nitrite Urine Bilirubin Urine Urobilinogen Ur Leukocyte Esterase RPR Titer Reactive 1:1 H T.pallidum Ab (MHA) Non reactive LABS NOTED. PATIENT REPORTS HISTORY OF TREATMENT FOR SYPHILIS MANY YEARS AGO. PATIENT ADVISED TO FOLLOW-UP WITH MEDICAL PROVIDER DR. Jarett ERNANDEZ ([facility]) AFTER DISCHARGE FROM DETOX FOR FURTHER EVALUATION OF POSITIVE RPR RESULT. 06/15/17 13:51 06/15/17 13:54 Assessment: 06/15/17 13:50 WITHDRAWAL SYMPTOMS. Plan: CONTINUE DETOX.
--- NOTE | 2017-06-15 14:23 | DS ---
[facility] Detox Discharge Summary Admission Date: 06/12/17 Discharge Date: 06/15/17 - History Present History: Alcohol Dependence, Cocaine Dependence Additional Comments: PATIENT DOES NOT WISH TO STAY TO COMPLETE DETOX REGIMEN. RISKS OF LEAVING DETOX UNIT PRIOR TO COMPLETION OF DETOX REGIMEN EXPLAINED TO PATIENT. PATIENT ADVISED TO GO IMMEDIATELY TO NEAREST ER SHOULD ANY INTOLERABLE DETOX SYMPTOMS DEVELOP AT ANY TIME. PATIENT LEFT DETOX UNIT IN STABLE MEDICAL CONDITION. Pertinent Past History: Asthma, COPD, HTN, CHF, HIV, Hep C, Nicotine Dependence, Low Back Pain. - Physical Exam Results Vital Signs: Vital Signs Temperature 96.1 F L 06/15/17 13:22 Pulse Rate 113 H 06/15/17 13:22 Respiratory Rate 20 06/15/17 13:22 Blood Pressure 141/96 06/15/17 13:22 O2 Sat by Pulse Oximetry (%) Pertinent Admission Physical Exam Findings: WITHDRAWAL SYMPTOMS. Laboratory Tests 06/12/17 06/13/17 06/13/17 21:35 07:00 07:00 WBC 4.3 D RBC 4.40 Hgb 13.1 D Hct 40.6 MCV 92.3 MCH 29.9 MCHC 32.4 RDW 15.9 Plt Count 164 MPV 10.7 Sodium 139 Potassium 3.7 Chloride 103 Carbon Dioxide 29 D Anion Gap 7 L BUN 37 H D Creatinine 1.8 H Creat Clearance w eGFR 39.37 Random Glucose 71 L D Calcium 8.6 Total Bilirubin 0.8 D AST 56 H D ALT 39 Alkaline Phosphatase 114 Total Protein 9.8 H D Albumin 3.0 L Urine Color Yellow Urine Appearance Clear Urine pH 7.0 Ur Specific [place] 1.017 Urine Protein 1+ H Urine Glucose (UA) Negative Urine Ketones Negative Urine Blood Negative Urine Nitrite Negative Urine Bilirubin Negative Urine Urobilinogen 2.0 Ur Leukocyte Esterase Negative RPR Titer T.pallidum Ab (A) 06/13/17 06/15/17 07:00 07:50 WBC RBC Hgb Hct MCV MCH MCHC RDW Plt Count MPV Sodium 141 Potassium 4.1 Chloride 102 Carbon Dioxide 31 Anion Gap 8 BUN 39 H Creatinine 2.1 H Creat Clearance w eGFR Random Glucose 77 Calcium 9.3 Total Bilirubin AST ALT Alkaline Phosphatase Total Protein Albumin Urine Color Urine Appearance Urine pH Ur Specific [place] Urine Protein Urine Glucose (UA) Urine Ketones Urine Blood Urine Nitrite Urine Bilirubin Urine Urobilinogen Ur Leukocyte Esterase RPR Titer Reactive 1:1 H T.pallidum Ab (MHA) Non reactive LABS NOTED. - Treatment Hospital Course: Detoxed Safely - Medication Discharge Medications: Ambulatory Orders Ritonavir [Norvir] 100 mg PO DAILY #30 tablet 02/10/14 Abacavir Sulfate/Lamivudine [Epzicom Tablet] 1 tablet PO DAILY #30 tab 10/18/16 Albuterol Sulfate Inhaler - [Ventolin HFA Inhaler -] 2 inh PO Q4H PRN #1 inh Aspirin [ASA -] 81 mg PO DAILY #30 tab.chew 10/18/16 Darunavir Ethanolate [Prezista] 800 mg PO DAILY #30 tab 10/18/16 Ritonavir [Norvir -] 100 mg PO DAILY #30 tab 10/18/16 Amiodarone HCl [Cordarone -] 200 mg PO DAILY 06/12/17 Ipratropium/Albuterol Sulfate [Combivent Respimat Inhal [place]] 2 inh IH BID 12/22 Torsemide [Demadex] 40 mg PO BID 06/12/17 - Diagnosis (1) Alcohol dependence with uncomplicated withdrawal Current Visit: Yes Status: Acute (2) Cocaine dependence, uncomplicated Current Visit: Yes Status: Acute (3) Drug-induced mood disorder Current Visit: Yes Status: Acute (4) Low back pain Current Visit: No Status: Acute Qualifiers: Chronicity: acute Back pain laterality: bilateral Sciatica presence: with sciatica Sciatica laterality: sciatica laterality unspecified Qualified Code(s): M54.40 - Lumbago with sciatica, unspecified side (5) Asthma Current Visit: Yes Status: Chronic (6) CHF Congestive heart failure Current Visit: Yes Status: Chronic (7) COPD (chronic obstructive pulmonary disease) Current Visit: Yes Status: Chronic Qualifiers: COPD type: chronic bronchitis Chronic bronchitis type: unspecified Qualified Code(s): J42 - Unspecified chronic bronchitis (8) HIV (human immunodeficiency virus infection) Current Visit: Yes Status: Chronic (9) Hepatitis C carrier Current Visit: Yes Status: Chronic (10) Nicotine dependence Current Visit: Yes Status: Chronic Qualifiers: Nicotine product type: cigarettes Substance use status: uncomplicated Qualified Code(s): F17.210 - Nicotine dependence, cigarettes, uncomplicated - AMA Did Patient Leave Against Medical Advice: Yes (PATIENT DID NOT WISH TO STAY TO [facility] DETOX REGIMEN.)
[2017-06-15] MEDS ORDERED: chlordiazePOXIDE HCL 10 MG CAPSULE PO SCH (23:00)
== END 2017-06-15 14:25 | disposition left against medical advice (07) | DRG 770 ==
LOC: YASAS 13:50 → Y3N 19:25
PROVIDERS: ADMIT Internal Medicine; ATTEND Internal Medicine
PROC: HZ2ZZZZ Detoxification Services for Substance Abuse Treatment (ICD-10-PCS; principal; 2017-06-12)
DX: F10.230 Alcohol dependence with withdrawal, uncomplicated (principal); F14.20 Cocaine dependence, uncomplicated; F17.210 Nicotine dependence, cigarettes, uncomplicated; F19.24 Other psychoactive substance dependence with psychoactive substance-induced mood disorder; I50.9 Heart failure, unspecified; M54.41 Lumbago with sciatica, right side; M54.42 Lumbago with sciatica, left side; J42 Unspecified chronic bronchitis; J45.909 Unspecified asthma, uncomplicated; B18.2 Chronic viral hepatitis C; Z21 Asymptomatic human immunodeficiency virus [HIV] infection status
CPT/HCPCS: 36415; 80048; 80053; 81003; 81015; 85027; 86593; 86780; 93005; 93010

== ENCOUNTER 2017-06-12 15:04 | Emergency (ER) | payer OTHER ==
[2017-06-12 15:16] VITALS: BP 130/78; PULSE 91; TEMP 97.5; BMI 28.0
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
== END 2017-06-12 16:25 | disposition home or self-care (01) ==
LOC: JERFT 15:04
DX: M54.42 Lumbago with sciatica, left side (principal); F17.210 Nicotine dependence, cigarettes, uncomplicated; I50.9 Heart failure, unspecified; E78.00 Pure hypercholesterolemia, unspecified; B19.20 Unspecified viral hepatitis C without hepatic coma; F10.10 Alcohol abuse, uncomplicated
CPT/HCPCS: 72100-TC; 99281-25

== ENCOUNTER 2017-08-10 11:18 | Inpatient (IN) | payer OTHER ==
[2017-08-10 11:36] VITALS: BMI 26.4
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
[2017-08-10] MEDS ORDERED: guaiFENesin/D-METHORPHAN HB 10 ML UNIT-DOSE CUPS PO PRN (14:14)
[2017-08-10] MEDS ORDERED: IBUPROFEN 400 MG TABLET (FP) PO PRN (14:14)
[2017-08-10] MEDS ORDERED: MAG HYDROX/AL HYDROX/SIMETH 30 ML UNIT-DOSE CUP PO PRN (14:14)
[2017-08-10] MEDS ORDERED: ACETAMINOPHEN 325 MG TABLET (FP) PO PRN (14:14)
[2017-08-10] MEDS ORDERED: P-EPHED 60MG/TRIPROLIDI 2.5MG TABLET PO PRN (14:14)
[2017-08-10] MEDS ORDERED: MAGNESIUM HYDROX 2400MG/30ML ORAL SUSPENSION 30 ML CUP PO PRN (14:14)
[2017-08-10] MEDS ORDERED: chlordiazePOXIDE HCL 25 MG CAPSULE PO PRN (14:14)
[2017-08-10] MEDS ORDERED: LOPERAMIDE HCL 2 MG CAPSULE PO PRN (14:14)
[2017-08-10] MEDS ORDERED: hydrOXYzine PAMOATE 50 MG CAPSULE (FP) PO PRN (14:14)
[2017-08-10] MEDS ORDERED: MENTHOL/PHENOL 1 EACH UD MM PRN (14:14)
[2017-08-10] MEDS ORDERED: MAGNESIUM CITRATE 300 ML BOTTLE PO PRN (14:14)
[2017-08-10] MEDS ORDERED: ALBUTEROL SO4 18 GM HFA INHALER IH PRN (14:18)
[2017-08-10] MEDS ORDERED: chlordiazePOXIDE HCL 25 MG CAPSULE PO ONE (16:00)
[2017-08-10] MEDS: chlordiazePOXIDE HCL 25 MG CAPSULE PO SCH ×2 (17:00→22:37)
[2017-08-10 18:28] LABS: URINE APPEARANCE CLEAR; URINE BILIRUBIN NEGATIVE (NEGATIVE); URINE BLOOD 1+ (NEGATIVE); URINE COLOR YELLOW; URINE GLUCOSE (UA) NEGATIVE (NEGATIVE); URINE KETONE NEGATIVE (NEGATIVE); URINE LEUK ESTERASE NEGATIVE (NEGATIVE); URINE NITRITE NEGATIVE (NEGATIVE)
[2017-08-10 18:46] LABS: URINE PROTEIN 1+ (NEGATIVE)
[2017-08-10 18:50] LABS: EPI CELLS RARE /HPF (FEW); URINE HYALINE CAST 2 /lpf; URINE MUCUS RARE
[2017-08-10] MEDS: THIAMINE HCL 100 MG TABLET (FP) PO SCH (22:36)
[2017-08-11] MEDS: FUROSEMIDE 20 MG TABLET (FP) PO SCH ×2 (06:29→14:29)
[2017-08-11] MEDS: chlordiazePOXIDE HCL 25 MG CAPSULE PO SCH ×4 (06:29→22:03)
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
[2017-08-11 10:10] LABS: HEMATOCRIT 39.9 % (35.4-49); HEMOGLOBIN 12.8 GM/dL (11.7-16.9); MCH 29.3 pg (25.7-33.7); MCHC 32.1 g/dl (32.0-35.9); MEAN CELL VOLUME 91.2 fl (80-96); MEAN PLT VOLUME 10.7 fl (7.5-11.1); PLATELET COUNT 146 K/MM3 (134-434); RBC 4.38 M/mm3 (4.00-5.60); WHITE BLOOD COUNT 4.7 K/mm3 (4.0-10.0)
[2017-08-11 10:12] LABS: ALBUMIN 2.7 g/dl (3.4-5.0); ANION GAP 6 (8-16); BLOOD UREA NITROGEN 76 mg/dL (7-18); CALCIUM 7.7 mg/dL (8.5-10.1); CHLORIDE 104 mmol/L (98-107); CO2 26 mmol/L (21-32); CREATININE 2.4 mg/dL (0.7-1.3); GLUCOSE,RANDOM 79 mg/dL (74-106); POTASSIUM 3.6 mmol/L (3.5-5.1); SGOT/AST 46 U/L (15-37); SGPT/ALT 39 U/L (12-78); SODIUM 136 mmol/L (136-145)
[2017-08-11 10:13] LABS: ALK PHOS 96 U/L (45-117); BILIRUBIN,TOTAL 0.5 mg/dL (0.2-1.0); TOT PROT 8.4 g/dl (6.4-8.2)
[2017-08-11] MEDS: AMIODARONE HCL 200 MG TABLET (FP) PO SCH (10:39)
[2017-08-11] MEDS: ASPIRIN 81 MG CHEWABLE TABLETS PO SCH (10:39)
[2017-08-11] MEDS: ABACAVIR SULFATE 300 MG TABLET PO SCH (10:40)
[2017-08-11] MEDS: PRENATAL VITAMINS W/ FOLIC ACID TABLET (FP) PO SCH (10:40)
[2017-08-11] MEDS: DARUNAVIR ETHANOLATE 800 MG TAB PO SCH (10:40)
[2017-08-11] MEDS: RITONAVIR 100 MG TABLET PO SCH (10:42)
[2017-08-11 11:37] LABS: RPR REACTIVE 1:1 (NONREACTIVE)
--- NOTE | 2017-08-11 13:13 | EKG ---
Test Reason : Blood Pressure : / mmHG Vent. Rate : 082 BPM Atrial Rate : 082 BPM P-R Int : 144 ms QRS Dur : 134 ms QT Int : 460 ms P-R-T Axes : 062 044 044 degrees QTc Int : 537 ms NORMAL SINUS RHYTHM POSSIBLE LEFT ATRIAL ENLARGEMENT NON-SPECIFIC INTRA-VENTRICULAR CONDUCTION BLOCK T WAVE ABNORMALITY, CONSIDER LATERAL ISCHEMIA ABNORMAL ECG WHEN COMPARED WITH ECG OF 13-JUN-2017 07:18, T WAVE INVERSION NOW EVIDENT IN LATERAL LEADS CLINICAL CORRELATION IS RECOMMENDED BASELINE ARTIFACT Confirmed by MARI ALCANTAR, GIO ([id number]) on 08/11/2017 1:13:40 PM Referred By: Confirmed By:GIO GUERRA MD
[2017-08-11 13:41] LABS: TREPONEMA ANTIBODY NON REACTIVE (NONREACTIVE)
--- NOTE | 2017-08-11 14:21 | PN ---
S CIWA - CIWA Score Nausea/Vomitin Muscle Tremors: 3 Anxiety: 4-Mod. Anxious/Guarded Agitation: 2 Paroxysmal Sweats: 3 Orientation: 0-Oriented Tacttile Disturbances: 2-Mild Itch/Numbness/Burn Auditory Disturbances: 0-None Visual Disturbances: 1-Very Mild Sensitivity Headache: 0-None Present CIWA-Ar Total Score: 18 BHS Progress Note (SOAP) Subjective: Nausea, Fatigue, Sweating, Interrupted Sleep. Objective: PT A & O X 3, OBSERVED AMBULATING ON UNIT. NO ACUTE DISTRESS. 08/11/17 14:18 Vital Signs Temperature 96.2 F L 08/11/17 09:45 Pulse Rate 84 08/11/17 09:45 Respiratory Rate 20 08/11/17 09:45 Blood Pressure 111/74 08/11/17 09:45 O2 Sat by Pulse Oximetry (%) Laboratory Tests 08/10/17 08/11/17 08/11/17 11:25 07:40 07:40 WBC 4.7 RBC 4.38 Hgb 12.8 Hct 39.9 MCV 91.2 MCH 29.3 MCHC 32.1 RDW 15.0 Plt Count 146 MPV 10.7 Sodium 136 Potassium 3.6 Chloride 104 Carbon Dioxide 26 Anion Gap 6 L BUN 76 H D Creatinine 2.4 H Creat Clearance w eGFR 28.25 Random Glucose 79 Calcium 7.7 L Total Bilirubin 0.5 D AST 46 H ALT 39 Alkaline Phosphatase 96 Total Protein 8.4 H Albumin 2.7 L Urine Color Yellow Urine Appearance Clear Urine pH 5.0 D Ur Specific [place] 1.019 Urine Protein 1+ H Urine Glucose (UA) Negative Urine Ketones Negative Urine Blood 1+ H Urine Nitrite Negative Urine Bilirubin Negative Urine Urobilinogen 2.0 Ur Leukocyte Esterase Negative Urine WBC (Auto) 2 Urine RBC (Auto) 1 Ur Epithelial Cells Rare Hyaline Casts 2 Urine Mucus Rare RPR Titer T.pallidum Ab ([facility]) 08/11/17 07:40 WBC RBC Hgb Hct MCV MCH MCHC RDW Plt Count MPV Sodium Potassium Chloride Carbon Dioxide Anion Gap BUN Creatinine Creat Clearance w eGFR Random Glucose Calcium Total Bilirubin AST ALT Alkaline Phosphatase Total Protein Albumin Urine Color Urine Appearance Urine pH Ur Specific [place] Urine Protein Urine Glucose (UA) Urine Ketones Urine Blood Urine Nitrite Urine Bilirubin Urine Urobilinogen Ur Leukocyte Esterase Urine WBC (Auto) Urine RBC (Auto) Ur Epithelial Cells Hyaline Casts Urine Mucus RPR Titer Reactive 1:1 H T.pallidum Ab ([facility]) Non reactive LABS NOTED. RESULTS OF RPR AND [facility]-TP NOTED. 08/11/17 14:21 Assessment: 08/11/17 14:18 WITHDRAWAL SYMPTOMS. Plan: CONTINUE DETOX. INCREASE DAILY PO FLUID INTAKE. BMP ON 08/12/2017 FOR ABNORMAL ADMISSION RENAL LAB VALUES. D/C IBUPROFEN AND MAGNESIUM-CONTAINING MEDS. PATIENT REPORTS THAT HE WAS TREATED FOR SYPHILIS DURING EARLY ADULTHOOD. PATIENT ADVISED TO FOLLOW-UP FOR MEDICAL EVALUATION WITH MEDICAL PROVIDER DR. Jarett ERNANDEZ OF [facility] AFTER DISCHARGE FROM DETOX FOR FURTHER MEDICAL EVALUATION.
[2017-08-11] MEDS: THIAMINE HCL 100 MG TABLET (FP) PO SCH (22:03)
[2017-08-12] MEDS: chlordiazePOXIDE HCL 25 MG CAPSULE PO SCH ×2 (06:28→10:35)
[2017-08-12] MEDS: FUROSEMIDE 20 MG TABLET (FP) PO SCH ×2 (07:28→14:31)
[2017-08-12] MEDS: PRENATAL VITAMINS W/ FOLIC ACID TABLET (FP) PO SCH (10:34)
[2017-08-12] MEDS: ASPIRIN 81 MG CHEWABLE TABLETS PO SCH (10:34)
[2017-08-12] MEDS: ABACAVIR SULFATE 300 MG TABLET PO SCH (10:34)
[2017-08-12] MEDS: DARUNAVIR ETHANOLATE 800 MG TAB PO SCH (10:34)
[2017-08-12] MEDS: RITONAVIR 100 MG TABLET PO SCH (10:35)
[2017-08-12] MEDS: AMIODARONE HCL 200 MG TABLET (FP) PO SCH (10:36)
--- NOTE | 2017-08-12 13:16 | PN ---
S CIWA - CIWA Score Nausea/Vomitin Muscle Tremors: 3 Anxiety: 3 Agitation: 3 Paroxysmal Sweats: 2 Orientation: 0-Oriented Tacttile Disturbances: 0-None Auditory Disturbances: 0-None Visual Disturbances: 0-None Headache: 0-None Present CIWA-Ar Total Score: 14 BHS Progress Note (SOAP) Subjective: SHAKES SLEEP DISTURBANCE Objective: 08/12/17 13:13 IN DAY ROOM WATCHING TV IN NO ACUTE DISTRESS Vital Signs Temperature 98.4 F 08/12/17 09:16 Pulse Rate 109 H 08/12/17 09:16 Respiratory Rate 18 08/12/17 09:16 Blood Pressure 130/87 08/12/17 09:16 O2 Sat by Pulse Oximetry (%) Laboratory Last Values WBC 4.7 K/mm3 (4.0-10.0) 08/11/17 07:40 RBC 4.38 M/mm3 (4.00-5.60) 08/11/17 07:40 Hgb 12.8 GM/dL (11.7-16.9) 08/11/17 07:40 Hct 39.9 % (35.4-49) 08/11/17 07:40 MCV 91.2 fl (80-96) 08/11/17 07:40 MCH 29.3 pg (25.7-33.7) 08/11/17 07:40 MCHC 32.1 g/dl (32.0-35.9) 08/11/17 07:40 RDW 15.0 % (11.9-15.9) 08/11/17 07:40 Plt Count 146 K/MM3 (134-434) 08/11/17 07:40 MPV 10.7 fl (7.5-11.1) 08/11/17 07:40 Sodium 136 mmol/L (136-145) 08/11/17 07:40 Potassium 3.6 mmol/L (3.5-5.1) 08/11/17 07:40 Chloride 104 mmol/L (98-107) 08/11/17 07:40 Carbon Dioxide 26 mmol/L (21-32) 08/11/17 07:40 Anion Gap 6 (8-16) L 08/11/17 07:40 BUN 76 mg/dL (7-18) H D 08/11/17 07:40 Creatinine 2.4 mg/dL (0.7-1.3) H 08/11/17 07:40 Creat Clearance w eGFR 28.25 (>60) 08/11/17 07:40 Random Glucose 79 mg/dL (74-106) 08/11/17 07:40 Calcium 7.7 mg/dL (8.5-10.1) L 08/11/17 07:40 Total Bilirubin 0.5 mg/dL (0.2-1.0) D 08/11/17 07:40 AST 46 U/L (15-37) H 08/11/17 07:40 ALT 39 U/L (12-78) 08/11/17 07:40 Alkaline Phosphatase 96 U/L (45-117) 08/11/17 07:40 Total Protein 8.4 g/dl (6.4-8.2) H 08/11/17 07:40 Albumin 2.7 g/dl (3.4-5.0) L 08/11/17 07:40 Urine Color Yellow 08/10/17 11:25 Urine Appearance Clear 08/10/17 11:25 Urine pH 5.0 (5.0-8.0) D 08/10/17 11:25 Ur Specific [place] 1.019 (1.001-1.035) 08/10/17 11:25 Urine Protein 1+ (NEGATIVE) H 08/10/17 11:25 Urine Glucose (UA) Negative (NEGATIVE) 08/10/17 11:25 Urine Ketones Negative (NEGATIVE) 08/10/17 11:25 Urine Blood 1+ (NEGATIVE) H 08/10/17 11:25 Urine Nitrite Negative (NEGATIVE) 08/10/17 11:25 Urine Bilirubin Negative (NEGATIVE) 08/10/17 11:25 Urine Urobilinogen 2.0 mg/dL (0.2-1.0) 08/10/17 11:25 Ur Leukocyte Esterase Negative (NEGATIVE) 08/10/17 11:25 Urine WBC (Auto) 2 /hpf (3-5) 08/10/17 11:25 Urine RBC (Auto) 1 /hpf (0-3) 08/10/17 11:25 Ur Epithelial Cells Rare /HPF (FEW) 08/10/17 11:25 Hyaline Casts 2 /lpf 08/10/17 11:25 Urine Mucus Rare 08/10/17 11:25 RPR Titer Reactive 1:1 (NONREACTIVE) H 08/11/17 07:40 T.pallidum Ab ([facility]) Non reactive (NONREACTIVE) 08/11/17 07:40 LABS NOTED. T.PALLADIUM AB NONREACTIVE Assessment: 08/12/17 13:15 WITHDRAWAL SX Plan: CONTINUE DETOX
[2017-08-12] MEDS: chlordiazePOXIDE 5 MG CAPSULE PO SCH ×2 (17:21→22:15)
[2017-08-12] MEDS: THIAMINE HCL 100 MG TABLET (FP) PO SCH (22:15)
[2017-08-12] MEDS ORDERED: MAG HYDROX/AL HYDROX/SIMETH 30 ML UNIT-DOSE CUP PO ONE (22:35)
[2017-08-13] MEDS: FUROSEMIDE 20 MG TABLET (FP) PO SCH ×2 (06:16→13:28)
[2017-08-13] MEDS: chlordiazePOXIDE 5 MG CAPSULE PO SCH ×2 (06:16→10:33)
[2017-08-13 10:26] LABS: CALCIUM 8.3 mg/dL (8.5-10.1); CHLORIDE 109 mmol/L (98-107); POTASSIUM 4.2 mmol/L (3.5-5.1); SODIUM 142 mmol/L (136-145)
[2017-08-13 10:29] LABS: ANION GAP 4 (8-16); BLOOD UREA NITROGEN 31 mg/dL (7-18); CO2 29 mmol/L (21-32); CREATININE 1.6 mg/dL (0.7-1.3); GLUCOSE,RANDOM 85 mg/dL (74-106)
[2017-08-13] MEDS: DARUNAVIR ETHANOLATE 800 MG TAB PO SCH (10:33)
[2017-08-13] MEDS: RITONAVIR 100 MG TABLET PO SCH (10:33)
[2017-08-13] MEDS: AMIODARONE HCL 200 MG TABLET (FP) PO SCH (10:33)
[2017-08-13] MEDS: PRENATAL VITAMINS W/ FOLIC ACID TABLET (FP) PO SCH (10:33)
[2017-08-13] MEDS: ABACAVIR SULFATE 300 MG TABLET PO SCH (10:33)
[2017-08-13] MEDS: ASPIRIN 81 MG CHEWABLE TABLETS PO SCH (10:33)
--- NOTE | 2017-08-13 13:01 | PN ---
BHS Progress Note (SOAP) Subjective: Fatigue, Tremors, Interrupted Sleep. Objective: PT. A & O X 3, OBSERVED AMBULATING ON UNIT. NO ACUTE DISTRESS. 08/13/17 13:00 Vital Signs Temperature 97 F L 08/13/17 09:13 Pulse Rate 86 08/13/17 09:13 Respiratory Rate 18 08/13/17 09:13 Blood Pressure 130/78 08/13/17 09:13 O2 Sat by Pulse Oximetry (%) Laboratory Tests 08/10/17 08/11/17 08/11/17 11:25 07:40 07:40 WBC 4.7 RBC 4.38 Hgb 12.8 Hct 39.9 MCV 91.2 MCH 29.3 MCHC 32.1 RDW 15.0 Plt Count 146 MPV 10.7 Sodium 136 Potassium 3.6 Chloride 104 Carbon Dioxide 26 Anion Gap 6 L BUN 76 H D Creatinine 2.4 H Creat Clearance w eGFR 28.25 Random Glucose 79 Calcium 7.7 L Total Bilirubin 0.5 D AST 46 H ALT 39 Alkaline Phosphatase 96 Total Protein 8.4 H Albumin 2.7 L Urine Color Yellow Urine Appearance Clear Urine pH 5.0 D Ur Specific [place] 1.019 Urine Protein 1+ H Urine Glucose (UA) Negative Urine Ketones Negative Urine Blood 1+ H Urine Nitrite Negative Urine Bilirubin Negative Urine Urobilinogen 2.0 Ur Leukocyte Esterase Negative Urine WBC (Auto) 2 Urine RBC (Auto) 1 Ur Epithelial Cells Rare Hyaline Casts 2 Urine Mucus Rare RPR Titer T.pallidum Ab ([facility]) 08/11/17 08/13/17 07:40 07:00 WBC RBC Hgb Hct MCV MCH MCHC RDW Plt Count MPV Sodium 142 Potassium 4.2 Chloride 109 H Carbon Dioxide 29 Anion Gap 4 L BUN 31 H D Creatinine 1.6 H D Creat Clearance w eGFR Random Glucose 85 Calcium 8.3 L Total Bilirubin AST ALT Alkaline Phosphatase Total Protein Albumin Urine Color Urine Appearance Urine pH Ur Specific [place] Urine Protein Urine Glucose (UA) Urine Ketones Urine Blood Urine Nitrite Urine Bilirubin Urine Urobilinogen Ur Leukocyte Esterase Urine WBC (Auto) Urine RBC (Auto) Ur Epithelial Cells Hyaline Casts Urine Mucus RPR Titer Reactive 1:1 H T.pallidum Ab ([facility]) Non reactive LABS NOTED. Assessment: 08/13/17 13:00 WITHDRAWAL SYMPTOMS. Plan: CONTINUE DETOX.
[2017-08-13] MEDS: chlordiazePOXIDE HCL 10 MG CAPSULE PO SCH ×2 (17:59→22:39)
[2017-08-13] MEDS: THIAMINE HCL 100 MG TABLET (FP) PO SCH (22:38)
[2017-08-14] MEDS: FUROSEMIDE 20 MG TABLET (FP) PO SCH (05:05)
[2017-08-14] MEDS: chlordiazePOXIDE HCL 10 MG CAPSULE PO SCH ×2 (05:06→10:37)
[2017-08-14] MEDS: ASPIRIN 81 MG CHEWABLE TABLETS PO SCH (10:36)
[2017-08-14] MEDS: AMIODARONE HCL 200 MG TABLET (FP) PO SCH (10:36)
[2017-08-14] MEDS: PRENATAL VITAMINS W/ FOLIC ACID TABLET (FP) PO SCH (10:36)
[2017-08-14] MEDS: RITONAVIR 100 MG TABLET PO SCH (10:36)
[2017-08-14] MEDS: ABACAVIR SULFATE 300 MG TABLET PO SCH (10:36)
[2017-08-14] MEDS: DARUNAVIR ETHANOLATE 800 MG TAB PO SCH (10:36)
[2017-08-14 13:56] VITALS: BP 132/78; PULSE 87; TEMP 96.7
--- NOTE | 2017-08-14 13:57 | DS ---
[facility] Detox Discharge Summary Admission Date: 08/10/17 Discharge Date: 08/14/17 - History Present History: Alcohol Dependence, Cocaine Dependence Additional Comments: PATIENT GOING TO [facility] ([email or web address] FOR AFTERCARE. PATIENT WAS DISCHARGED FROM DETOX UNIT IN STABLE MEDICAL CONDITION. Pertinent Past History: Asthma, Nicotine Dependence, HIV, Hep C (Treated), CHF, Anxiety, Insomnia, Low Back Pain, COPD. - Physical Exam Results Vital Signs: Vital Signs Temperature 96.9 F L 08/14/17 09:00 Pulse Rate 84 08/14/17 09:00 Respiratory Rate 18 08/14/17 09:00 Blood Pressure 130/76 08/14/17 09:00 O2 Sat by Pulse Oximetry (%) Pertinent Admission Physical Exam Findings: WITHDRAWAL SYMPTOMS. Laboratory Tests 08/10/17 08/11/17 08/11/17 11:25 07:40 07:40 WBC 4.7 RBC 4.38 Hgb 12.8 Hct 39.9 MCV 91.2 MCH 29.3 MCHC 32.1 RDW 15.0 Plt Count 146 MPV 10.7 Sodium 136 Potassium 3.6 Chloride 104 Carbon Dioxide 26 Anion Gap 6 L BUN 76 H D Creatinine 2.4 H Creat Clearance w eGFR 28.25 Random Glucose 79 Calcium 7.7 L Total Bilirubin 0.5 D AST 46 H ALT 39 Alkaline Phosphatase 96 Total Protein 8.4 H Albumin 2.7 L Urine Color Yellow Urine Appearance Clear Urine pH 5.0 D Ur Specific [place] 1.019 Urine Protein 1+ H Urine Glucose (UA) Negative Urine Ketones Negative Urine Blood 1+ H Urine Nitrite Negative Urine Bilirubin Negative Urine Urobilinogen 2.0 Ur Leukocyte Esterase Negative Urine WBC (Auto) 2 Urine RBC (Auto) 1 Ur Epithelial Cells Rare Hyaline Casts 2 Urine Mucus Rare RPR Titer T.pallidum Ab (A) 08/11/17 08/13/17 07:40 07:00 WBC RBC Hgb Hct MCV MCH MCHC RDW Plt Count MPV Sodium 142 Potassium 4.2 Chloride 109 H Carbon Dioxide 29 Anion Gap 4 L BUN 31 H D Creatinine 1.6 H D Creat Clearance w eGFR Random Glucose 85 Calcium 8.3 L Total Bilirubin AST ALT Alkaline Phosphatase Total Protein Albumin Urine Color Urine Appearance Urine pH Ur Specific [place] Urine Protein Urine Glucose (UA) Urine Ketones Urine Blood Urine Nitrite Urine Bilirubin Urine Urobilinogen Ur Leukocyte Esterase Urine WBC (Auto) Urine RBC (Auto) Ur Epithelial Cells Hyaline Casts Urine Mucus RPR Titer Reactive 1:1 H T.pallidum Ab ([facility]) Non reactive LABS NOTED. - Treatment Hospital Course: Detox Protocol Followed, Detoxed Safely, Responded well, Discharged Condition Good, Rehab Referral Accepted Patient has Accepted a Rehab Referral to: [facility] ([facility]) . - Medication Discharge Medications: Ambulatory Orders Ritonavir [Norvir] 100 mg PO DAILY #30 tablet 02/10/14 Abacavir Sulfate/Lamivudine [Epzicom Tablet] 1 tablet PO DAILY #30 tab 10/18/16 Darunavir Ethanolate [Prezista] 800 mg PO DAILY #30 tab 10/18/16 Albuterol Sulfate Inhaler - [Ventolin HFA Inhaler -] 2 inh PO Q4H PRN #1 inh 03/24 Amiodarone HCl [Cordarone -] 200 mg PO DAILY #30 tablet 06/15/17 Aspirin [ASA -] 81 mg PO DAILY #30 tab.chew 06/15/17 Torsemide [Demadex] 40 mg PO BID #60 tablet 06/15/17 - Diagnosis (1) Insomnia Current Visit: Yes Status: Acute Qualifiers: Insomnia type: unspecified Qualified Code(s): G47.00 - Insomnia, unspecified (2) Weight loss Current Visit: Yes Status: Acute (3) Hepatitis C Current Visit: Yes Status: Chronic Qualifiers: Viral hepatitis chronicity: chronic Hepatic coma status: without hepatic coma Qualified Code(s): B18.2 - Chronic viral hepatitis C (4) Alcohol dependence with uncomplicated withdrawal Current Visit: Yes Status: Acute (5) CHF Congestive heart failure Current Visit: Yes Status: Chronic (6) HIV (human immunodeficiency virus infection) Current Visit: Yes Status: Chronic (7) Nicotine dependence Current Visit: Yes Status: Chronic Qualifiers: Nicotine product type: cigarettes Substance use status: uncomplicated Qualified Code(s): F17.210 - Nicotine dependence, cigarettes, uncomplicated (8) Anxiety Current Visit: Yes Status: Acute (9) Asthma Current Visit: Yes Status: Chronic (10) Low back pain Current Visit: Yes Status: Chronic Qualifiers: Chronicity: acute Back pain laterality: bilateral Sciatica presence: with sciatica Sciatica laterality: sciatica laterality unspecified Qualified Code(s): M54.40 - Lumbago with sciatica, unspecified side (11) Substance-induced anxiety disorder Current Visit: Yes Status: Acute (12) Cocaine dependence, uncomplicated Current Visit: Yes Status: Acute (13) COPD (chronic obstructive pulmonary disease) Current Visit: Yes Status: Chronic Qualifiers: COPD type: chronic bronchitis Chronic bronchitis type: unspecified Qualified Code(s): J42 - Unspecified chronic bronchitis - AMA Did Patient Leave Against Medical Advice: No
== END 2017-08-14 15:15 | disposition other institution (70) | DRG 774 ==
LOC: YASAS 11:18 → Y3N 14:26
PROVIDERS: ADMIT Internal Medicine; ATTEND Internal Medicine
PROC: HZ2ZZZZ Detoxification Services for Substance Abuse Treatment (ICD-10-PCS; principal; 2017-08-10)
DX: F10.230 Alcohol dependence with withdrawal, uncomplicated (principal); F14.20 Cocaine dependence, uncomplicated; F17.210 Nicotine dependence, cigarettes, uncomplicated; F41.9 Anxiety disorder, unspecified; F19.280 Other psychoactive substance dependence with psychoactive substance-induced anxiety disorder; G47.00 Insomnia, unspecified; B18.2 Chronic viral hepatitis C; I50.9 Heart failure, unspecified; Z21 Asymptomatic human immunodeficiency virus [HIV] infection status; J45.909 Unspecified asthma, uncomplicated; M54.40 Lumbago with sciatica, unspecified side; J42 Unspecified chronic bronchitis; Z88.2 Allergy status to sulfonamides; Z87.898 Personal history of other specified conditions
CPT/HCPCS: 36415; 80048; 80053; 81003; 81015; 85027; 86593; 86780; 93005; 93010

== ENCOUNTER 2017-08-14 14:15 | Inpatient (IN) | payer OTHER ==
[2017-08-14] MEDS ORDERED: P-EPHED 60MG/TRIPROLIDI 2.5MG TABLET PO PRN (15:14)
[2017-08-14] MEDS ORDERED: MAGNESIUM HYDROX 2400MG/30ML ORAL SUSPENSION 30 ML CUP PO PRN (15:14)
[2017-08-14] MEDS ORDERED: MENTHOL/PHENOL 1 EACH UD MM PRN (15:14)
[2017-08-14] MEDS ORDERED: hydrOXYzine PAMOATE 25 MG CAPSULE (FP) PO PRN (15:14)
[2017-08-14] MEDS ORDERED: guaiFENesin/D-METHORPHAN HB 10 ML UNIT-DOSE CUPS PO PRN (15:14)
[2017-08-14] MEDS ORDERED: LOPERAMIDE HCL 2 MG CAPSULE PO PRN (15:14)
[2017-08-14] MEDS ORDERED: MAGNESIUM CITRATE 300 ML BOTTLE PO PRN (15:14)
[2017-08-14] MEDS ORDERED: MAG HYDROX/AL HYDROX/SIMETH 30 ML UNIT-DOSE CUP PO PRN (15:14)
[2017-08-14] MEDS ORDERED: IBUPROFEN 400 MG TABLET (FP) PO PRN (15:14)
--- NOTE | 2017-08-14 15:14 | HP ---
[facility] Rehab Assess/Revision - Admission History Admitted to Rehab from: [facility] Date of Admission to Rehab: 08/14/17 - Findings Detox History & Physical reviewed: Yes Concur with findings: Yes Comments/Additional Findings: for rehb as protocol Inpatient Rehab Admission - Initial Determination Are CD services needed?: Yes Free of communicable disease: Yes Not in need of hospitalization: Yes - Rehab Admission Criteria Previous failed treatment: Yes Poor recovery environment: Yes Comorbidities: Yes Lacks judgement: No Patient is meeting Inpatient Rehab admission criteria:: Yes
[2017-08-14] MEDS ORDERED: ALBUTEROL SO4 18 GM HFA INHALER IH PRN (15:16)
[2017-08-14] MEDS: THIAMINE HCL 100 MG TABLET (FP) PO SCH (21:12)
[2017-08-15] MEDS ORDERED: FUROSEMIDE 40 MG TABLET (FP) PO ONE (01:39)
--- NOTE | 2017-08-15 02:08 | PN ---
BHS Progress Note (SOAP) Subjective: Patient complained of shortness of breath, chest congestion, fatigue, bloating and difficulty breathing. Patient is afebrile, alert and oriented to person, place and time. Appears very anxious. Objective: 08/15/17 02:06 Vital Signs Temperature 98.4 Pulse Rate 73 Respiratory Rate 20 08/15/17 00:30 Blood Pressure 127/75 O2 Sat by Pulse Oximetry (%) 97% Assessment: 08/15/17 02:07 CHF Fluid overload / water retention Plan: Lasix 40mg tablet oral stat oxygen @ 2 LPM via nasal cannula Chest xray Fluid restriction
[2017-08-15] MEDS: DARUNAVIR ETHANOLATE 800 MG TAB PO SCH (08:02)
[2017-08-15] MEDS: RITONAVIR 100 MG TABLET PO SCH (08:02)
[2017-08-15] MEDS: AMIODARONE HCL 200 MG TABLET (FP) PO SCH (09:31)
[2017-08-15] MEDS: ASPIRIN 81 MG CHEWABLE TABLETS PO SCH (09:31)
[2017-08-15] MEDS: PRENATAL VITAMINS W/ FOLIC ACID TABLET (FP) PO SCH (09:31)
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
[2017-08-15] MEDS ORDERED: PATIENT'S OWN MEDICATION (NON-FORMULARY) (Abacavir Sulfate/Lamivudine [Epzicom Tablet] 1 T PO SCH (10:00)
[2017-08-15] MEDS: ABACAVIR SULFATE 300 MG TABLET PO SCH (10:02)
[2017-08-15] MEDS ORDERED: ALBUTEROL SO4 0.083% IH SOL 2.5 MG/3 ML VIAL.NEB. NEB PRN (11:28)
[2017-08-15] MEDS ORDERED: FUROSEMIDE 20 MG TABLET (FP) PO ONE (11:29)
--- NOTE | 2017-08-15 11:34 | PN ---
BHS Progress Note (SOAP) Subjective: pt wanted to follow up on chest x-ray for SOB experienced yesterday. Objective: 08/15/17 11:32 chest x-ray pending Assessment: 08/15/17 11:32 lungs assess some rhonci noted pulse ox 99% RA no lower legs edema noted Plan: lasix 40mg q daily at 6pm as per pt request albuterol neb tx prn encouraged use of pillows to raise HOB when sleeping monitor water intake to prevent fluid overload
[2017-08-15] MEDS ORDERED: FUROSEMIDE 20 MG TABLET (FP) PO SCH (14:00)
[2017-08-15] MEDS: THIAMINE HCL 100 MG TABLET (FP) PO SCH (21:19)
[2017-08-15] MEDS: SUVOREXANT 10 MG TABLET PO PRN (21:21)
[2017-08-16] MEDS: RITONAVIR 100 MG TABLET PO SCH (07:23)
[2017-08-16] MEDS: DARUNAVIR ETHANOLATE 800 MG TAB PO SCH (07:23)
[2017-08-16] MEDS: AMIODARONE HCL 200 MG TABLET (FP) PO SCH (09:52)
[2017-08-16] MEDS: ASPIRIN 81 MG CHEWABLE TABLETS PO SCH (09:52)
[2017-08-16] MEDS: PRENATAL VITAMINS W/ FOLIC ACID TABLET (FP) PO SCH (09:52)
[2017-08-16] MEDS: ABACAVIR SULFATE 300 MG TABLET PO SCH (09:53)
[2017-08-16] MEDS: FUROSEMIDE 40 MG TABLET (FP) PO SCH (17:11)
[2017-08-16] MEDS: SUVOREXANT 10 MG TABLET PO PRN (22:06)
[2017-08-16] MEDS: THIAMINE HCL 100 MG TABLET (FP) PO SCH (22:06)
[2017-08-17] MEDS ORDERED: PT OWN MED DRAWER 7, Y5N ONE ×2 (03:56→09:44)
[2017-08-17] MEDS: RITONAVIR 100 MG TABLET PO SCH (07:58)
[2017-08-17] MEDS: DARUNAVIR ETHANOLATE 800 MG TAB PO SCH (07:58)
[2017-08-17] MEDS: AMIODARONE HCL 200 MG TABLET (FP) PO SCH (09:41)
[2017-08-17] MEDS: ASPIRIN 81 MG CHEWABLE TABLETS PO SCH (09:41)
[2017-08-17] MEDS: PRENATAL VITAMINS W/ FOLIC ACID TABLET (FP) PO SCH (09:41)
[2017-08-17] MEDS: ABACAVIR SULFATE 300 MG TABLET PO SCH (09:44)
[2017-08-17] MEDS: FUROSEMIDE 40 MG TABLET (FP) PO SCH (17:07)
[2017-08-17] MEDS: THIAMINE HCL 100 MG TABLET (FP) PO SCH (21:49)
[2017-08-18] MEDS ORDERED: PT OWN MED DRAWER 7, Y5N ONE ×3 (05:35→09:34)
[2017-08-18] MEDS ORDERED: SUVOREXANT 10 MG TABLET PO PRN (06:44)
[2017-08-18] MEDS: RITONAVIR 100 MG TABLET PO SCH (07:02)
[2017-08-18] MEDS: DARUNAVIR ETHANOLATE 800 MG TAB PO SCH (07:02)
[2017-08-18] MEDS: ASPIRIN 81 MG CHEWABLE TABLETS PO SCH (09:31)
[2017-08-18] MEDS: PRENATAL VITAMINS W/ FOLIC ACID TABLET (FP) PO SCH (09:31)
[2017-08-18] MEDS: AMIODARONE HCL 200 MG TABLET (FP) PO SCH (09:31)
[2017-08-18] MEDS: ABACAVIR SULFATE 300 MG TABLET PO SCH (09:34)
[2017-08-18] MEDS: ACETAMINOPHEN 325 MG TABLET (FP) PO PRN (14:36)
[2017-08-18] MEDS: FUROSEMIDE 40 MG TABLET (FP) PO SCH (17:35)
[2017-08-18] MEDS: THIAMINE HCL 100 MG TABLET (FP) PO SCH (22:03)
[2017-08-19] MEDS: DARUNAVIR ETHANOLATE 800 MG TAB PO SCH (07:16)
[2017-08-19] MEDS: RITONAVIR 100 MG TABLET PO SCH (07:16)
[2017-08-19] MEDS: PRENATAL VITAMINS W/ FOLIC ACID TABLET (FP) PO SCH (09:33)
[2017-08-19] MEDS: ASPIRIN 81 MG CHEWABLE TABLETS PO SCH (09:34)
[2017-08-19] MEDS: AMIODARONE HCL 200 MG TABLET (FP) PO SCH (09:34)
[2017-08-19] MEDS: ABACAVIR SULFATE 300 MG TABLET PO SCH (09:35)
[2017-08-19] MEDS ORDERED: PT OWN MED DRAWER 7, Y5N ONE (09:37)
[2017-08-19] MEDS: FUROSEMIDE 40 MG TABLET (FP) PO SCH (17:48)
[2017-08-19] MEDS: ACETAMINOPHEN 325 MG TABLET (FP) PO PRN (17:49)
[2017-08-19] MEDS: THIAMINE HCL 100 MG TABLET (FP) PO SCH (21:27)
[2017-08-20] MEDS: DARUNAVIR ETHANOLATE 800 MG TAB PO SCH (07:11)
[2017-08-20] MEDS: RITONAVIR 100 MG TABLET PO SCH (07:11)
[2017-08-20] MEDS ORDERED: ALBUTEROL SO4 0.083% IH SOL 2.5 MG/3 ML VIAL.NEB. NEB PRN (07:14)
[2017-08-20] MEDS: AMIODARONE HCL 200 MG TABLET (FP) PO SCH (09:35)
[2017-08-20] MEDS: ASPIRIN 81 MG CHEWABLE TABLETS PO SCH (09:35)
[2017-08-20] MEDS: PRENATAL VITAMINS W/ FOLIC ACID TABLET (FP) PO SCH (09:35)
[2017-08-20] MEDS: ABACAVIR SULFATE 300 MG TABLET PO SCH (09:37)
[2017-08-20] MEDS ORDERED: PT OWN MED DRAWER 7, Y5N ONE (09:39)
--- NOTE | 2017-08-20 13:46 | PN ---
S Progress Note (SOAP) Subjective: concerned about xrayresults, requested cxr after episode of sob but no chf noted or infiltrate, cardiomegaly. Objective: 08/20/17 13:45 Vital Signs - 24 hr 08/20/17 08/20/17 03:30 06:36 Temperature 98 F Pulse Rate 71 Respiratory 20 18 Rate Blood Pressure 133/76 labs reveiwed, will repeat Assessment: 08/20/17 13:45 cardiomegaly and h/o chf - bp stale was on metoprolol and lisinopril, will restart and monitor bp, repeat labs in am, patietn advised to keep hydrated. , no salt
[2017-08-20] MEDS: metoPROLOL SUCCINATE 25 MG TAB.SR.24H (FP) PO SCH (14:46)
[2017-08-20] MEDS: LISINOPRIL 10 MG TABLET (FP) PO SCH ×2 (14:46→21:13)
[2017-08-20] MEDS: FUROSEMIDE 40 MG TABLET (FP) PO SCH (17:09)
[2017-08-20] MEDS: THIAMINE HCL 100 MG TABLET (FP) PO SCH (21:13)
[2017-08-21] MEDS: RITONAVIR 100 MG TABLET PO SCH (07:31)
[2017-08-21] MEDS: DARUNAVIR ETHANOLATE 800 MG TAB PO SCH (07:31)
[2017-08-21] MEDS: ASPIRIN 81 MG CHEWABLE TABLETS PO SCH (09:36)
[2017-08-21] MEDS: AMIODARONE HCL 200 MG TABLET (FP) PO SCH (09:36)
[2017-08-21] MEDS: PRENATAL VITAMINS W/ FOLIC ACID TABLET (FP) PO SCH (09:36)
[2017-08-21] MEDS: LISINOPRIL 10 MG TABLET (FP) PO SCH ×2 (09:36→21:05)
[2017-08-21] MEDS: metoPROLOL SUCCINATE 25 MG TAB.SR.24H (FP) PO SCH (09:36)
[2017-08-21] MEDS: ABACAVIR SULFATE 300 MG TABLET PO SCH (09:37)
[2017-08-21 09:58] LABS: BASO % 0.2 % (0-2.0); EOS % 2.9 % (0-4.5); HEMATOCRIT 35.1 % (35.4-49); HEMOGLOBIN 11.2 GM/dL (11.7-16.9); LYMPH % 20.7 % (8-40); MCH 29.5 pg (25.7-33.7); MCHC 31.9 g/dl (32.0-35.9); MEAN CELL VOLUME 92.7 fl (80-96); MEAN PLT VOLUME 10.7 fl (7.5-11.1); MONO % 13.9 % (3.8-10.2); NEUT % 62.3 % (42.8-82.8); PLATELET COUNT 139 K/MM3 (134-434); RBC 3.79 M/mm3 (4.00-5.60); RDW 15.4 % (11.9-15.9); WHITE BLOOD COUNT 4.8 K/mm3 (4.0-10.0)
[2017-08-21 10:06] LABS: INR 1.04 (0.82-1.09); PROTHROMBIN TIME (PATIENT) 11.7 SEC (9.98-11.88)
[2017-08-21 10:36] LABS: CHLORIDE 108 mmol/L (98-107); POTASSIUM 4.1 mmol/L (3.5-5.1); SODIUM 139 mmol/L (136-145)
[2017-08-21 10:49] LABS: ALBUMIN 2.7 g/dl (3.4-5.0); ALK PHOS 129 U/L (45-117); ANION GAP 7 (8-16); BILIRUBIN,TOTAL 0.5 mg/dL (0.2-1.0); BLOOD UREA NITROGEN 34 mg/dL (7-18); CALCIUM 7.9 mg/dL (8.5-10.1); CO2 24 mmol/L (21-32); CREATININE 1.6 mg/dL (0.7-1.3); GLUCOSE,RANDOM 99 mg/dL (74-106); SGOT/AST 35 U/L (15-37); SGPT/ALT 36 U/L (12-78)
--- NOTE | 2017-08-21 12:07 | PN ---
[facility] Progress Note (SOAP) Subjective: reveiwed labs with patietn, taking to many meds at 10AM, wants to take all hiv meds at 8AM Objective: 08/21/17 12:06 Vital Signs - 24 hr 08/20/17 08/20/17 08/21/17 20:55 21:03 06:42 Temperature 98.2 F Pulse Rate 68 68 68 Respiratory 18 Rate Blood Pressure 128/77 128/77 131/75 08/21/17 10:00 Temperature Pulse Rate 67 Respiratory 18 Rate Blood Pressure 133/75 Laboratory Tests 08/21/17 08/21/17 08/21/17 07:30 07:30 07:30 WBC 4.8 RBC 3.79 L Hgb 11.2 L D Hct 35.1 L MCV 92.7 MCH 29.5 MCHC 31.9 L RDW 15.4 Plt Count 139 MPV 10.7 Neutrophils % 62.3 Lymphocytes % 20.7 D Monocytes % 13.9 H Eosinophils % 2.9 Basophils % 0.2 PT with INR 11.70 INR 1.04 Sodium 139 Potassium 4.1 Chloride 108 H Carbon Dioxide 24 Anion Gap 7 L BUN 34 H Creatinine 1.6 H Creat Clearance w eGFR 45.10 Random Glucose 99 Calcium 7.9 L Total Bilirubin 0.5 AST 35 D ALT 36 Alkaline Phosphatase 129 H D Total Protein 8.0 Albumin 2.7 L elevated bun and creatinine fro lasix, h/o chf now stable will not make any changes Assessment: 08/21/17 12:07 mikala from lasix, change hiv meds to am all.
--- NOTE | 2017-08-21 12:57 | PN ---
BHS Progress Note Note: Psychiatric nurse practitioner note: Pt. made aware that Belsomra 10mg PRN was reordered for insomnia.
[2017-08-21] MEDS: FUROSEMIDE 40 MG TABLET (FP) PO SCH (17:41)
[2017-08-21] MEDS: THIAMINE HCL 100 MG TABLET (FP) PO SCH (21:05)
[2017-08-21] MEDS ORDERED: SUVOREXANT 10 MG TABLET PO PRN (22:00)
[2017-08-22] MEDS: DARUNAVIR ETHANOLATE 800 MG TAB PO SCH (07:08)
[2017-08-22] MEDS: RITONAVIR 100 MG TABLET PO SCH (07:08)
[2017-08-22] MEDS: ABACAVIR SULFATE 300 MG TABLET PO SCH (07:09)
[2017-08-22] MEDS ORDERED: PT OWN MED DRAWER 7, Y5N ONE ×2 (07:10→11:58)
[2017-08-22] MEDS: LISINOPRIL 10 MG TABLET (FP) PO SCH ×2 (09:39→21:07)
[2017-08-22] MEDS: metoPROLOL SUCCINATE 25 MG TAB.SR.24H (FP) PO SCH (09:39)
[2017-08-22] MEDS: PRENATAL VITAMINS W/ FOLIC ACID TABLET (FP) PO SCH (09:39)
[2017-08-22] MEDS: ASPIRIN 81 MG CHEWABLE TABLETS PO SCH (09:39)
[2017-08-22] MEDS: AMIODARONE HCL 200 MG TABLET (FP) PO SCH (09:39)
[2017-08-22] MEDS: ACETAMINOPHEN 325 MG TABLET (FP) PO PRN (10:53)
[2017-08-22] MEDS: FUROSEMIDE 40 MG TABLET (FP) PO SCH (17:13)
[2017-08-22] MEDS: THIAMINE HCL 100 MG TABLET (FP) PO SCH (21:07)
[2017-08-23] MEDS: ACETAMINOPHEN 325 MG TABLET (FP) PO PRN (03:02)
[2017-08-23 06:53] VITALS: TEMP 97.5
[2017-08-23] MEDS: RITONAVIR 100 MG TABLET PO SCH (07:03)
[2017-08-23] MEDS: DARUNAVIR ETHANOLATE 800 MG TAB PO SCH (07:03)
[2017-08-23] MEDS: ABACAVIR SULFATE 300 MG TABLET PO SCH (07:05)
[2017-08-23] MEDS: LISINOPRIL 10 MG TABLET (FP) PO SCH (10:08)
[2017-08-23] MEDS: ASPIRIN 81 MG CHEWABLE TABLETS PO SCH (10:08)
[2017-08-23] MEDS: AMIODARONE HCL 200 MG TABLET (FP) PO SCH (10:08)
[2017-08-23] MEDS: PRENATAL VITAMINS W/ FOLIC ACID TABLET (FP) PO SCH (10:08)
[2017-08-23] MEDS: metoPROLOL SUCCINATE 25 MG TAB.SR.24H (FP) PO SCH (10:09)
[2017-08-23 11:55] VITALS: BP 106/59; PULSE 63
[2017-08-23] MEDS: FUROSEMIDE 40 MG TABLET (FP) PO SCH (17:12)
--- NOTE | 2017-08-23 19:23 | DS ---
[facility] Detox Discharge Summary Admission Date: 08/14/17 Discharge Date: 08/23/17 - Physical Exam Results Vital Signs: Vital Signs Temperature 97.5 F L 08/23/17 06:51 Pulse Rate 63 08/23/17 10:00 Respiratory Rate 18 08/23/17 06:51 Blood Pressure 106/59 08/23/17 10:00 O2 Sat by Pulse Oximetry (%) - Medication Discharge Medications: Ambulatory Orders Ritonavir [Norvir] 100 mg PO DAILY #30 tablet 02/10/14 Abacavir Sulfate/Lamivudine [Epzicom Tablet] 1 tablet PO DAILY #30 tab 10/18/16 Darunavir Ethanolate [Prezista] 800 mg PO DAILY #30 tab 10/18/16 Albuterol Sulfate Inhaler - [Ventolin HFA Inhaler -] 2 inh PO Q4H PRN #1 inh 03/24 Amiodarone HCl [Cordarone -] 200 mg PO DAILY #30 tablet 06/15/17 Aspirin [ASA -] 81 mg PO DAILY #30 tab.chew 06/15/17 Torsemide [Demadex] 40 mg PO BID #60 tablet 06/15/17
== END 2017-08-23 19:45 | disposition home or self-care (01) | DRG 772 ==
LOC: YASAS 14:15 → Y3W 14:16
PROVIDERS: ADMIT Psychiatry & Neurology Psychiatry; ATTEND Psychiatry & Neurology Psychiatry
PROC: HZ42ZZZ Group Counseling for Substance Abuse Treatment, Cognitive-Behavioral (ICD-10-PCS; principal; 2017-08-14)
DX: F10.20 Alcohol dependence, uncomplicated (principal); F14.20 Cocaine dependence, uncomplicated; F17.210 Nicotine dependence, cigarettes, uncomplicated; F19.282 Other psychoactive substance dependence with psychoactive substance-induced sleep disorder; J42 Unspecified chronic bronchitis; J45.909 Unspecified asthma, uncomplicated; I50.9 Heart failure, unspecified; B18.2 Chronic viral hepatitis C; M54.41 Lumbago with sciatica, right side; M54.42 Lumbago with sciatica, left side
CPT/HCPCS: 36415; 71046-TC-FY; 80053; 85025; 85610; 94640

== ENCOUNTER 2022-04-10 14:26 | Inpatient (IN) | payer OTHER ==
[2022-04-11 04:24] VITALS: BMI 38.5
[2022-04-11] MEDS ORDERED: MAGNESIUM HYDROX 2400MG/30ML ORAL SUSPENSION 30 ML CUP PO PRN (05:16)
[2022-04-11] MEDS ORDERED: ACETAMINOPHEN 325 MG TABLET (FP) PO PRN ×2 (05:16)
[2022-04-11] MEDS ORDERED: IBUPROFEN 600 MG TABLET (FP) PO PRN (05:16)
[2022-04-11] MEDS ORDERED: BISMUTH SUBSALICYLATE 524 MG/30 ML PO PRN (05:16)
[2022-04-11] MEDS ORDERED: LOPERAMIDE HCL 2 MG CAPSULE PO PRN (05:16)
[2022-04-11] MEDS ORDERED: BENZOCAINE/MENTHOL (CHLORASEPTIC ) LOZENGE MM PRN (05:16)
[2022-04-11] MEDS ORDERED: MAGNESIUM CITRATE 300 ML BOTTLE PO PRN (05:16)
[2022-04-11] MEDS ORDERED: IBUPROFEN 400 MG TABLET (FP) PO PRN ×2 (05:16→05:21)
[2022-04-11] MEDS ORDERED: NICOTINE 10 MG CARTRIDGE (INHALER) IH PRN (05:16)
[2022-04-11] MEDS ORDERED: MAG HYDROX/AL HYDROX/SIMETH 30 ML UNIT-DOSE CUP PO PRN (05:16)
[2022-04-11] MEDS ORDERED: METHOCARBAMOL 500 MG TABLET PO PRN (05:16)
[2022-04-11] MEDS ORDERED: NALOXONE HCL (KLOXXADO) 8 MG SPRAY NS PRN (05:16)
[2022-04-11] MEDS ORDERED: DICYCLOMINE HCL 10 MG CAPSULE PO PRN (05:16)
[2022-04-11] MEDS ORDERED: ONDANSETRON *ODT* 4 MG TABLET SL PRN (05:16)
[2022-04-11] MEDS ORDERED: NICOTINE POLACRILEX 2 MG GUM BUC PRN (05:21)
[2022-04-11] MEDS ORDERED: cloNIDine HCL 0.1 MG TABLET PO ONE (05:27)
[2022-04-11] MEDS ORDERED: ALBUTEROL SO4 HFA INHALER IH PRN (06:02)
[2022-04-11] MEDS: NICOTINE 14 MG/24 HOURS TOPICAL PATCH TD SCH (11:18)
[2022-04-11] MEDS: PRENATAL VITAMINS W/ FOLIC ACID TABLET (FP) PO SCH (11:18)
[2022-04-11] MEDS: AMIODARONE HCL 200 MG TABLET PO SCH (14:45)
[2022-04-11] MEDS: TORSEMIDE 20 MG TABLET (FP) PO SCH ×2 (14:45→22:30)
[2022-04-11] MEDS: ASPIRIN 81 MG CHEWABLE TABLETS PO SCH (14:46)
[2022-04-11] MEDS: BICTEGRAV/EMTRICIT/TENOFOV (BIKTARVY) 50-200-25 MG TABLET PO SCH (14:48)
[2022-04-11] MEDS ORDERED: MELATONIN 5 MG TABLETS PO SCH (22:00)
[2022-04-11] MEDS ORDERED: THIAMINE HCL 100 MG TABLET (FP) PO SCH (22:00)
[2022-04-12 08:53] VITALS: PULSE 103; RESP 18
[2022-04-12] MEDS: AMIODARONE HCL 200 MG TABLET PO SCH (10:39)
[2022-04-12] MEDS: TORSEMIDE 20 MG TABLET (FP) PO SCH (10:39)
[2022-04-12] MEDS: NICOTINE 14 MG/24 HOURS TOPICAL PATCH TD SCH (10:39)
[2022-04-12] MEDS: PRENATAL VITAMINS W/ FOLIC ACID TABLET (FP) PO SCH (10:39)
[2022-04-12] MEDS: BICTEGRAV/EMTRICIT/TENOFOV (BIKTARVY) 50-200-25 MG TABLET PO SCH (10:39)
[2022-04-12] MEDS: ASPIRIN 81 MG CHEWABLE TABLETS PO SCH (10:39)
[2022-04-12 12:05] LABS: HEMATOCRIT 37.4 % (35.4-49); HEMOGLOBIN 11.8 GM/dL (11.7-16.9); MCH 28.4 pg (25.7-33.7); MCHC 31.5 g/dl (32.0-35.9); MEAN CELL VOLUME 90.1 fl (80-96); MEAN PLT VOLUME 11.3 fl (7.5-11.1); PLATELET COUNT 79 10^3/uL (134-434); RBC 4.15 M/mm3 (4.00-5.60); RDW 15.8 % (11.9-15.9); WHITE BLOOD COUNT 6.9 K/mm3 (4.0-10.0)
[2022-04-12 12:24] LABS: CALCIUM 9.2 mg/dL (8.5-10.1)
[2022-04-12 12:25] LABS: ALBUMIN 2.8 g/dl (3.4-5.0); BLOOD UREA NITROGEN 37.6 mg/dL (7-18)
[2022-04-12 12:28] LABS: CREATININE 2.4 mg/dL (0.55-1.3)
[2022-04-12 12:29] LABS: BILIRUBIN,TOTAL 0.5 mg/dL (0.2-1); TOT PROT 7.9 g/dl (6.4-8.2)
[2022-04-12 13:18] VITALS: BP 157/70; TEMP 98.6
== END 2022-04-12 15:31 | disposition other institution (70) | DRG 774 ==
LOC: YASAS 14:26 → Y3N 04-11 06:58
PROVIDERS: ADMIT Allergy & Immunology; ATTEND Allergy & Immunology
PROC: HZ2ZZZZ Detoxification Services for Substance Abuse Treatment (ICD-10-PCS; principal; 2022-04-10)
DX: F10.230 Alcohol dependence with withdrawal, uncomplicated (principal); F14.20 Cocaine dependence, uncomplicated; F17.210 Nicotine dependence, cigarettes, uncomplicated; Z21 Asymptomatic human immunodeficiency virus [HIV] infection status; I50.9 Heart failure, unspecified; E78.5 Hyperlipidemia, unspecified; J42 Unspecified chronic bronchitis; Z86.19 Personal history of other infectious and parasitic diseases; Z88.2 Allergy status to sulfonamides
CPT/HCPCS: 36415; 80053; 85027; 86780; 93005; 93010; C9803-CS; U0003; U0005

== ENCOUNTER 2022-04-12 15:31 | Inpatient (IN) | payer OTHER ==
[2022-04-12] MEDS ORDERED: P-EPHED 60MG/TRIPROLIDI 2.5MG TABLET PO PRN (16:58)
[2022-04-12] MEDS ORDERED: hydrOXYzine PAMOATE 25 MG CAPSULE (FP) PO PRN (16:58)
[2022-04-12] MEDS ORDERED: MAG HYDROX/AL HYDROX/SIMETH 30 ML UNIT-DOSE CUP PO PRN (16:58)
[2022-04-12] MEDS ORDERED: MAGNESIUM HYDROX 2400MG/30ML ORAL SUSPENSION 30 ML CUP PO PRN (16:58)
[2022-04-12] MEDS ORDERED: LOPERAMIDE HCL 2 MG CAPSULE PO PRN (16:58)
[2022-04-12] MEDS ORDERED: BENZOCAINE/MENTHOL (CHLORASEPTIC ) LOZENGE MM PRN (16:58)
[2022-04-12] MEDS ORDERED: MAGNESIUM CITRATE 300 ML BOTTLE PO PRN (16:58)
[2022-04-12] MEDS ORDERED: ACETAMINOPHEN 325 MG TABLET (FP) PO PRN (16:58)
[2022-04-12] MEDS ORDERED: NICOTINE 10 MG CARTRIDGE (INHALER) IH PRN (16:58)
[2022-04-12] MEDS ORDERED: guaiFENesin 200 MG/10 ML 10 ML UNIT-DOSE CUPS PO PRN (16:58)
[2022-04-12] MEDS ORDERED: IBUPROFEN 400 MG TABLET (FP) PO PRN (16:58)
[2022-04-12] MEDS ORDERED: ALBUTEROL SO4 HFA INHALER IH PRN (16:59)
[2022-04-12] MEDS: MELATONIN 5 MG TABLETS PO SCH (21:07)
[2022-04-12] MEDS: THIAMINE HCL 100 MG TABLET (FP) PO SCH (21:07)
[2022-04-12] MEDS: TORSEMIDE 20 MG TABLET (FP) PO SCH (22:47)
[2022-04-13 07:18] VITALS: RESP 18
[2022-04-13] MEDS: PRENATAL VITAMINS W/ FOLIC ACID TABLET (FP) PO SCH (10:53)
[2022-04-13] MEDS: TORSEMIDE 20 MG TABLET (FP) PO SCH ×2 (10:53→21:40)
[2022-04-13] MEDS: ASPIRIN 81 MG CHEWABLE TABLETS PO SCH (10:53)
[2022-04-13] MEDS: NICOTINE 7 MG/24 HOURS TOPICAL PATCH TD SCH (10:53)
[2022-04-13] MEDS: BICTEGRAV/EMTRICIT/TENOFOV (BIKTARVY) 50-200-25 MG TABLET PO SCH (10:53)
[2022-04-13] MEDS: AMIODARONE HCL 200 MG TABLET PO SCH (10:53)
[2022-04-13] MEDS: THIAMINE HCL 100 MG TABLET (FP) PO SCH (21:40)
[2022-04-13] MEDS: MELATONIN 5 MG TABLETS PO SCH (21:40)
[2022-04-14 07:05] VITALS: TEMP 98.2
[2022-04-14] MEDS: PRENATAL VITAMINS W/ FOLIC ACID TABLET (FP) PO SCH (10:00)
[2022-04-14] MEDS: BICTEGRAV/EMTRICIT/TENOFOV (BIKTARVY) 50-200-25 MG TABLET PO SCH (10:00)
[2022-04-14] MEDS: TORSEMIDE 20 MG TABLET (FP) PO SCH (10:00)
[2022-04-14] MEDS: ASPIRIN 81 MG CHEWABLE TABLETS PO SCH (10:00)
[2022-04-14] MEDS: AMIODARONE HCL 200 MG TABLET PO SCH (10:02)
[2022-04-14] MEDS: NICOTINE 7 MG/24 HOURS TOPICAL PATCH TD SCH (10:02)
[2022-04-14 12:18] LABS: BLOOD UREA NITROGEN 47.5 mg/dL (7-18)
[2022-04-14 12:20] LABS: CREATININE 2.8 mg/dL (0.55-1.3)
[2022-04-14 12:22] LABS: BILIRUBIN,TOTAL 0.4 mg/dL (0.2-1); TOT PROT 9.1 g/dl (6.4-8.2)
[2022-04-14 14:21] VITALS: BP 143/83; PULSE 67
== END 2022-04-14 12:59 | disposition left against medical advice (07) | DRG 770 ==
LOC: YASAS 15:31 → Y3W 15:34
PROVIDERS: ADMIT Allergy & Immunology; ATTEND Psychiatry & Neurology Pain Medicine
PROC: HZ42ZZZ Group Counseling for Substance Abuse Treatment, Cognitive-Behavioral (ICD-10-PCS; principal; 2022-04-12)
DX: F10.20 Alcohol dependence, uncomplicated (principal); F14.20 Cocaine dependence, uncomplicated; F17.210 Nicotine dependence, cigarettes, uncomplicated; I51.7 Cardiomegaly; J44.9 Chronic obstructive pulmonary disease, unspecified; N28.9 Disorder of kidney and ureter, unspecified; Z88.2 Allergy status to sulfonamides
CPT/HCPCS: 36415; 80053

== ENCOUNTER 2022-08-22 10:23 | Inpatient (IN) | payer OTHER ==
[2022-08-22 10:56] VITALS: BMI 35.7
[2022-08-22] MEDS ORDERED: hydrOXYzine PAMOATE 25 MG CAPSULE (FP) PO PRN (12:35)
[2022-08-22] MEDS ORDERED: LOPERAMIDE HCL 2 MG CAPSULE PO PRN (12:35)
[2022-08-22] MEDS ORDERED: ONDANSETRON *ODT* 4 MG TABLET SL PRN (12:35)
[2022-08-22] MEDS ORDERED: NICOTINE 10 MG CARTRIDGE (INHALER) IH PRN (12:35)
[2022-08-22] MEDS ORDERED: BISMUTH SUBSALICYLATE 524 MG/30 ML PO PRN (12:35)
[2022-08-22] MEDS ORDERED: METHOCARBAMOL 500 MG TABLET PO PRN (12:35)
[2022-08-22] MEDS ORDERED: DICYCLOMINE HCL 10 MG CAPSULE PO PRN (12:35)
[2022-08-22] MEDS ORDERED: MAG HYDROX/AL HYDROX/SIMETH 30 ML UNIT-DOSE CUP PO PRN (12:35)
[2022-08-22] MEDS ORDERED: MAGNESIUM HYDROX 2400MG/30ML ORAL SUSPENSION 30 ML CUP PO PRN (12:35)
[2022-08-22] MEDS ORDERED: ACETAMINOPHEN 325 MG TABLET (FP) PO PRN ×2 (12:35)
[2022-08-22] MEDS ORDERED: IBUPROFEN 600 MG TABLET (FP) PO PRN (12:35)
[2022-08-22] MEDS ORDERED: IBUPROFEN 400 MG TABLET (FP) PO PRN (12:35)
[2022-08-22] MEDS ORDERED: POLYETHYLENE GLYCOL (HEALTHYLAX) 3350 17 GM PACKET PO PRN (12:35)
[2022-08-22] MEDS ORDERED: BENZOCAINE/MENTHOL (CHLORASEPTIC ) LOZENGE MM PRN (12:35)
[2022-08-22] MEDS ORDERED: LORazepam 1 MG TABLET PO PRN (12:35)
[2022-08-22] MEDS ORDERED: NICOTINE POLACRILEX 2 MG GUM BUC PRN (12:41)
[2022-08-22] MEDS ORDERED: NICOTINE 7 MG/24 HOURS TOPICAL PATCH TD PRN (12:41)
[2022-08-22] MEDS ORDERED: ALBUTEROL SO4 HFA INHALER IH PRN (12:45)
[2022-08-22] MEDS: TORSEMIDE 20 MG TABLET (FP) PO SCH ×2 (17:26→22:38)
[2022-08-22] MEDS: LORazepam 2 MG TABLET PO SCH ×2 (17:27→22:39)
[2022-08-22] MEDS ORDERED: THIAMINE HCL 100 MG TABLET (FP) PO SCH (22:00)
[2022-08-22] MEDS ORDERED: MELATONIN 5 MG TABLETS PO SCH (22:00)
[2022-08-22] MEDS: BUDESONIDE/FORMETEROL FUMARATE 160/4.5 mcg INHALER IH SCH (22:39)
[2022-08-23] MEDS: LORazepam 1 MG TABLET PO SCH ×3 (06:05→17:30)
[2022-08-23] MEDS ORDERED: BICTEGRAV/EMTRICIT/TENOFOV (BIKTARVY) 50-200-25 MG TABLET PO SCH (09:00)
[2022-08-23] MEDS ORDERED: AMIODARONE HCL 200 MG TABLET PO SCH (10:00)
[2022-08-23] MEDS ORDERED: ASPIRIN 81 MG CHEWABLE TABLETS PO SCH (10:00)
[2022-08-23] MEDS ORDERED: PRENATAL VITAMINS W/ FOLIC ACID TABLET (FP) PO SCH (10:00)
[2022-08-23] MEDS: TORSEMIDE 20 MG TABLET (FP) PO SCH (10:12)
[2022-08-23] MEDS: BUDESONIDE/FORMETEROL FUMARATE 160/4.5 mcg INHALER IH SCH (10:12)
[2022-08-23 12:19] LABS: HEMATOCRIT 28.8 % (35.4-49); HEMOGLOBIN 9.3 GM/dL (11.7-16.9); MCH 27.8 pg (25.7-33.7); MCHC 32.4 g/dl (32.0-35.9); MEAN CELL VOLUME 85.6 fl (80-96); MEAN PLT VOLUME 9.2 fl (7.5-11.1); PLATELET COUNT 149 10^3/uL (134-434); RBC 3.36 M/mm3 (4.00-5.60); RDW 20.4 % (11.9-15.9); WHITE BLOOD COUNT 4.4 K/mm3 (4.0-10.0)
[2022-08-23 12:42] LABS: CALCIUM 8.3 mg/dL (8.5-10.1)
[2022-08-23 12:43] LABS: ALBUMIN 2.5 g/dl (3.4-5.0)
[2022-08-23 12:45] LABS: CREATININE 2.3 mg/dL (0.55-1.3)
[2022-08-23 12:48] LABS: BILIRUBIN,TOTAL 0.3 mg/dL (0.2-1); TOT PROT 8.3 g/dl (6.4-8.2)
[2022-08-23 17:20] VITALS: BP 134/84; PULSE 135; RESP 18; TEMP 98.4
[2022-08-24] MEDS ORDERED: LORazepam 0.5 MG TABLET PO PRN
[2022-08-24] MEDS ORDERED: LORazepam 0.5 MG TABLET PO SCH (05:00)
[2022-08-25] MEDS ORDERED: LORazepam 0.5 MG TABLET PO ONE (05:00)
== END 2022-08-23 18:48 | disposition left against medical advice (07) | DRG 770 ==
LOC: YASAS 10:23 → Y6N 12:38
PROVIDERS: ADMIT Allergy & Immunology; ATTEND Surgery
PROC: HZ2ZZZZ Detoxification Services for Substance Abuse Treatment (ICD-10-PCS; principal; 2022-08-22)
DX: F10.230 Alcohol dependence with withdrawal, uncomplicated (principal); F14.20 Cocaine dependence, uncomplicated; F17.210 Nicotine dependence, cigarettes, uncomplicated; B20 Human immunodeficiency virus [HIV] disease; Z79.899 Other long term (current) drug therapy; I11.0 Hypertensive heart disease with heart failure; I50.9 Heart failure, unspecified; J43.0 Unilateral pulmonary emphysema [MacLeod's syndrome]; Z88.2 Allergy status to sulfonamides
CPT/HCPCS: 36415; 80053; 85027; 86780; 87811; 93005; 93010; C9803-CS; U0003; U0005

== ENCOUNTER 2023-06-26 11:58 | Inpatient (IN) | payer OTHER ==
[2023-06-26 12:34] VITALS: BMI 36.6
[2023-06-26] MEDS ORDERED: BENZOCAINE/MENTHOL (CHLORASEPTIC ) LOZENGE MM PRN (13:46)
[2023-06-26] MEDS ORDERED: NALOXONE HCL 0.4 MG/ML VIAL IM PRN (13:46)
[2023-06-26] MEDS ORDERED: BENZONATATE 200 MG CAPSULE PO PRN (13:46)
[2023-06-26] MEDS ORDERED: POLYETHYLENE GLYCOL (HEALTHYLAX) 3350 17 GM PACKET PO PRN (13:46)
[2023-06-26] MEDS ORDERED: ONDANSETRON *ODT* 4 MG TABLET SL PRN (13:46)
[2023-06-26] MEDS ORDERED: NICOTINE POLACRILEX 2 MG GUM BUC PRN (13:46)
[2023-06-26] MEDS ORDERED: LOPERAMIDE HCL 2 MG CAPSULE PO PRN (13:46)
[2023-06-26] MEDS ORDERED: guaiFENesin 600 MG TABLET.ER (FP) PO PRN (13:46)
[2023-06-26] MEDS ORDERED: NALOXONE HCL (KLOXXADO) 8 MG SPRAY NS PRN (13:46)
[2023-06-26] MEDS ORDERED: DICYCLOMINE HCL 10 MG CAPSULE PO PRN (13:46)
[2023-06-26] MEDS ORDERED: MAG HYDROX/AL HYDROX/SIMETH 30 ML UNIT-DOSE CUP PO PRN (13:46)
[2023-06-26] MEDS ORDERED: BISMUTH SUBSALICYLATE 524 MG/30 ML PO PRN (13:46)
[2023-06-26] MEDS ORDERED: MAGNESIUM HYDROX 2400MG/30ML ORAL SUSPENSION 30 ML CUP PO PRN (13:46)
[2023-06-26] MEDS: ACETAMINOPHEN 325 MG TABLET (FP) PO PRN (19:18)
[2023-06-26] MEDS: MELATONIN 5 MG TABLETS PO SCH (22:35)
[2023-06-26] MEDS: THIAMINE HCL 100 MG TABLET (FP) PO SCH (22:35)
[2023-06-26] MEDS: IBUPROFEN 600 MG TABLET (FP) PO PRN (22:35)
[2023-06-27] MEDS: IBUPROFEN 600 MG TABLET (FP) PO PRN ×2 (05:08→22:12)
[2023-06-27] MEDS ORDERED: ALBUTEROL SO4 HFA INHALER IH PRN (09:11)
[2023-06-27] MEDS ORDERED: TORSEMIDE 20 MG TABLET (FP) PO SCH (10:00)
[2023-06-27] MEDS: PRENATAL VITAMINS W/ FOLIC ACID TABLET (FP) PO SCH (10:30)
[2023-06-27] MEDS: AMIODARONE HCL 200 MG TABLET PO SCH (10:30)
[2023-06-27] MEDS: BICTEGRAV/EMTRICIT/TENOFOV (BIKTARVY) 50-200-25 MG TABLET PO SCH (10:30)
[2023-06-27] MEDS: ASPIRIN 81 MG CHEWABLE TABLETS PO SCH (10:30)
[2023-06-27] MEDS: NICOTINE 14 MG/24 HOURS TOPICAL PATCH TD SCH (10:32)
[2023-06-27 10:36] LABS: CHLORIDE 111 mmol/L (98-107); POTASSIUM 4.3 mmol/L (3.5-5.1); SODIUM 139 mmol/L (136-145)
[2023-06-27 10:44] LABS: ALBUMIN 2.7 g/dl (3.4-5.0); ANION GAP 3 mmol/L (4-13); BLOOD UREA NITROGEN 37.1 mg/dL (7-18); CO2 25 mmol/L (21-32); GLUCOSE,RANDOM 109 mg/dL (74-106)
[2023-06-27 10:45] LABS: CREATININE 1.8 mg/dL (0.55-1.3); SGPT/ALT 32 U/L (13-61)
[2023-06-27 10:47] LABS: BILIRUBIN,TOTAL 0.4 mg/dL (0.2-1); SGOT/AST 46 U/L (15-37); TOT PROT 9.1 g/dl (6.4-8.2)
[2023-06-27 10:48] LABS: ALK PHOS 162 U/L (45-117)
[2023-06-27 10:49] LABS: HEMATOCRIT 33.8 % (35.4-49); HEMOGLOBIN 10.6 GM/dL (11.7-16.9); MCH 27.2 pg (25.7-33.7); MCHC 31.5 g/dl (32.0-35.9); MEAN CELL VOLUME 86.5 fl (80-96); MEAN PLT VOLUME 10.6 fl (7.5-11.1); PLATELET COUNT 82 10^3/uL (134-434); RBC 3.91 M/mm3 (4.00-5.60); RDW 16.6 % (11.9-15.9); WHITE BLOOD COUNT 5.3 K/mm3 (4.0-10.0)
[2023-06-27 10:51] LABS: CALCIUM 9.2 mg/dL (8.5-10.1)
[2023-06-27] MEDS: diazePAM 5 MG TABLET PO SCH ×3 (11:51→22:09)
[2023-06-27] MEDS: ALLOPURINOL 100 MG TABLET (FP) PO SCH (12:22)
[2023-06-27] MEDS: ACETAMINOPHEN 325 MG TABLET (FP) PO PRN (17:35)
[2023-06-27] MEDS ORDERED: TORSEMIDE 20 MG TABLET (FP) PO ONE (18:00)
[2023-06-27] MEDS: MELATONIN 5 MG TABLETS PO SCH (22:09)
[2023-06-27] MEDS: THIAMINE HCL 100 MG TABLET (FP) PO SCH (22:09)
[2023-06-28] MEDS: TORSEMIDE 20 MG TABLET (FP) PO SCH ×2 (05:50→13:31)
[2023-06-28] MEDS: diazePAM 5 MG TABLET PO SCH ×4 (05:50→22:53)
[2023-06-28] MEDS: BICTEGRAV/EMTRICIT/TENOFOV (BIKTARVY) 50-200-25 MG TABLET PO SCH (08:00)
[2023-06-28] MEDS: ASPIRIN 81 MG CHEWABLE TABLETS PO SCH (10:21)
[2023-06-28] MEDS: AMIODARONE HCL 200 MG TABLET PO SCH (10:21)
[2023-06-28] MEDS: ALLOPURINOL 100 MG TABLET (FP) PO SCH (10:21)
[2023-06-28] MEDS: PRENATAL VITAMINS W/ FOLIC ACID TABLET (FP) PO SCH (10:21)
[2023-06-28] MEDS: NICOTINE 14 MG/24 HOURS TOPICAL PATCH TD SCH (10:23)
[2023-06-28] MEDS: ACETAMINOPHEN 325 MG TABLET (FP) PO PRN (13:33)
[2023-06-28] MEDS: diazePAM 5 MG TABLET PO PRN (20:49)
[2023-06-28] MEDS: MELATONIN 5 MG TABLETS PO SCH (22:19)
[2023-06-28] MEDS: THIAMINE HCL 100 MG TABLET (FP) PO SCH (22:19)
[2023-06-28] MEDS: IBUPROFEN 600 MG TABLET (FP) PO PRN (22:21)
[2023-06-29] MEDS: diazePAM 5 MG TABLET PO SCH ×3 (06:21→22:33)
[2023-06-29] MEDS: TORSEMIDE 20 MG TABLET (FP) PO SCH ×2 (06:22→13:19)
[2023-06-29] MEDS: BICTEGRAV/EMTRICIT/TENOFOV (BIKTARVY) 50-200-25 MG TABLET PO SCH (07:08)
[2023-06-29] MEDS: AMIODARONE HCL 200 MG TABLET PO SCH (09:39)
[2023-06-29] MEDS: PRENATAL VITAMINS W/ FOLIC ACID TABLET (FP) PO SCH (09:39)
[2023-06-29] MEDS: ASPIRIN 81 MG CHEWABLE TABLETS PO SCH (09:39)
[2023-06-29] MEDS: ALLOPURINOL 100 MG TABLET (FP) PO SCH (09:39)
[2023-06-29] MEDS: NICOTINE 14 MG/24 HOURS TOPICAL PATCH TD SCH (09:41)
[2023-06-29 09:50] LABS: POTASSIUM 3.9 mmol/L (3.5-5.1)
[2023-06-29 09:52] LABS: CALCIUM 8.8 mg/dL (8.5-10.1)
[2023-06-29 09:53] LABS: ALBUMIN 2.6 g/dl (3.4-5.0); BLOOD UREA NITROGEN 46.1 mg/dL (7-18)
[2023-06-29 09:56] LABS: CREATININE 2.2 mg/dL (0.55-1.3)
[2023-06-29 09:57] LABS: TOT PROT 8.8 g/dl (6.4-8.2)
[2023-06-29 09:58] LABS: BILIRUBIN,TOTAL 0.3 mg/dL (0.2-1)
[2023-06-29] MEDS: diazePAM 5 MG TABLET PO PRN (17:35)
[2023-06-29] MEDS: ACETAMINOPHEN 325 MG TABLET (FP) PO PRN (17:35)
[2023-06-29] MEDS: MELATONIN 5 MG TABLETS PO SCH (22:33)
[2023-06-29] MEDS: THIAMINE HCL 100 MG TABLET (FP) PO SCH (22:33)
[2023-06-29] MEDS: IBUPROFEN 400 MG TABLET (FP) PO PRN (22:34)
[2023-06-30] MEDS: TORSEMIDE 20 MG TABLET (FP) PO SCH ×2 (05:46→13:38)
[2023-06-30] MEDS: diazePAM 5 MG TABLET PO SCH ×2 (05:47→17:31)
[2023-06-30] MEDS: BICTEGRAV/EMTRICIT/TENOFOV (BIKTARVY) 50-200-25 MG TABLET PO SCH (08:05)
[2023-06-30] MEDS: PRENATAL VITAMINS W/ FOLIC ACID TABLET (FP) PO SCH (10:27)
[2023-06-30] MEDS: ASPIRIN 81 MG CHEWABLE TABLETS PO SCH (10:27)
[2023-06-30] MEDS: NICOTINE 14 MG/24 HOURS TOPICAL PATCH TD SCH (10:28)
[2023-06-30] MEDS: AMIODARONE HCL 200 MG TABLET PO SCH (10:28)
[2023-06-30] MEDS: ALLOPURINOL 100 MG TABLET (FP) PO SCH (10:28)
[2023-06-30] MEDS: ACETAMINOPHEN 325 MG TABLET (FP) PO PRN (14:27)
[2023-06-30] MEDS: IBUPROFEN 400 MG TABLET (FP) PO PRN (22:18)
[2023-06-30] MEDS: THIAMINE HCL 100 MG TABLET (FP) PO SCH (22:31)
[2023-06-30] MEDS: MELATONIN 5 MG TABLETS PO SCH (22:31)
[2023-07-01] MEDS: TORSEMIDE 20 MG TABLET (FP) PO SCH ×2 (05:55→14:44)
[2023-07-01] MEDS ORDERED: diazePAM 5 MG TABLET PO ONE (06:00)
[2023-07-01] MEDS: BICTEGRAV/EMTRICIT/TENOFOV (BIKTARVY) 50-200-25 MG TABLET PO SCH (07:42)
[2023-07-01 08:50] VITALS: BP 132/92; PULSE 120; RESP 20; TEMP 97.5
[2023-07-01] MEDS: ASPIRIN 81 MG CHEWABLE TABLETS PO SCH (09:55)
[2023-07-01] MEDS: AMIODARONE HCL 200 MG TABLET PO SCH (09:56)
[2023-07-01] MEDS: PRENATAL VITAMINS W/ FOLIC ACID TABLET (FP) PO SCH (09:56)
[2023-07-01] MEDS: NICOTINE 14 MG/24 HOURS TOPICAL PATCH TD SCH (09:56)
[2023-07-01] MEDS: ALLOPURINOL 100 MG TABLET (FP) PO SCH (09:56)
[2023-07-01 10:03] LABS: POTASSIUM 3.7 mmol/L (3.5-5.1)
[2023-07-01 10:04] LABS: CALCIUM 9.1 mg/dL (8.5-10.1)
[2023-07-01 10:08] LABS: CREATININE 2.4 mg/dL (0.55-1.3)
== END 2023-07-01 11:01 | disposition home or self-care (01) | DRG 774 ==
LOC: YASAS 11:58 → Y3N 14:16
PROVIDERS: ADMIT Allergy & Immunology; ATTEND Surgery
PROC: HZ2ZZZZ Detoxification Services for Substance Abuse Treatment (ICD-10-PCS; principal; 2023-06-26)
DX: F10.230 Alcohol dependence with withdrawal, uncomplicated (principal); F14.20 Cocaine dependence, uncomplicated; F17.210 Nicotine dependence, cigarettes, uncomplicated; Z21 Asymptomatic human immunodeficiency virus [HIV] infection status; N17.9 Acute kidney failure, unspecified; D64.9 Anemia, unspecified; E87.8 Other disorders of electrolyte and fluid balance, not elsewhere classified; J45.20 Mild intermittent asthma, uncomplicated; J44.9 Chronic obstructive pulmonary disease, unspecified; K21.9 Gastro-esophageal reflux disease without esophagitis; R79.89 Other specified abnormal findings of blood chemistry; Z88.2 Allergy status to sulfonamides
CPT/HCPCS: 36415; 80048; 80053; 80307; 82607; 82728; 82746; 83540; 83550; 85027; 86780; 87635; 87811